=== PATIENT | female | born 1960 | race Caucasian/White ===

== ENCOUNTER 2017-02-28 01:12 | Inpatient (IN) | payer OTHER ==
[2017-02-28] MEDS ORDERED: NALOXONE HCL INJ/PF 0.4 MG/1 ML SDV IV ONE ×3 (01:15→02:46)
[2017-02-28] MEDS ORDERED: DOPAMINE HCL/DEXTROSE 5%-WATER 800 MG/250 ML RTUINJ IV PRN (01:26)
[2017-02-28] MEDS ORDERED: NORMAL SALINE 1000 ML 1,000 ML IV ONE ×2 (01:26→03:01)
--- NOTE | 2017-02-28 01:32 | ER Document Report ---
ED General - General Stated Complaint: POSSIBLE OVERDOSE Time Seen by Provider: 02/28/17 01:14 Notes: Patient is 56-year-old female presents with complaints of being poorly responsive. Patient was diagnosed with flu and then prescribed hydrocodone cough syrup. says that he left and came back home. He came back home he noticed that she was sleepy appearing. He sat on the toilet she slumped forward. Says she did not get this went to after she took the cough medicine. Paramedics arrived she had just recently filled the cough medicine and 20 mL's is already missing. She is only supposed to take 5 mL's every 12 hours. She is also on multiple other sedating medications including trazodone and clonazepam. She is also on Synthroid. Patient currently is able to talk to me. Paramedics did give her Narcan which did wake her up enough to talk. She still very somnolent but able to talk. She was hypotensive upon arrival today and started dopamine and started some IV fluids. Patient currently says that she did not feel this way until taking the cough medicine. Patient says that she misread the bottle and she thinks she did take more cough medicine than what she was supposed to. She denies any current fevers. She denies any other complaints at this time. She denies a headache. Past Medical History - Social History Smoking Status: Unknown if Ever Smoked Frequency of alcohol use: None Drug Abuse: None Family History: Reviewed & Not Pertinent Review of Systems - Review of Systems Notes: My Normal Review Basic REVIEW OF SYSTEMS: CONSTITUTIONAL : Denies fever, chills, or sweats. Denies recent illness. EENT: Denies eye, ear, throat, or mouth pain or symptoms. Denies nasal or sinus congestion. CARDIOVASCULAR: Denies chest pain. RESPIRATORY: Denies cough, cold, or chest congestion. Denies shortness of breath, difficulty breathing, or wheezing. GASTROINTESTINAL: Denies abdominal pain. Some nausea. MUSCULOSKELETAL: Denies neck or back pain or joint pain or swelling. SKIN: Denies rash or skin lesions.. NEUROLOGICAL: Altered mental status. Denies headache. Denies weakness or paralysis or loss of use of either side. Some slight slurring of speech.. Denies sensory or motor loss. ALL OTHER SYSTEMS REVIEWED AND NEGATIVE. Physical Exam - Vital signs Vitals: Resp Pulse Ox 12 92 02/28/17 01:15 12/24/17 01:15 - Notes Notes: General Appearance: Well nourished, somnolent. Will answer questions but then falls back asleep after talking. cooperative, no acute distress, no obvious discomfort. Vitals: reviewed, See vital signs table. Head: no swelling or tenderness to the head Eyes: PERRL, EOMI, Conjuctiva clear Mouth: No decreasd moisture Neck: Supple, no neck tenderness, No thyromegaly Lungs: No wheezing, No rales, No rhonci, No accessory muscle use, good air exchange bilaterally. Heart: Normal rate, Regular rythm, No murmur, no rub Abdomen: Normal BS, soft, No rigidity, No abdominal tenderness, No guarding, no rebound, Extremities: good pulses in all extremities, no swelling or tenderness in the extremities, no edema. Skin: warm, dry, appropriate color, no rash Neuro: speech clear, oriented x 3, normal affect, responds appropriately to questions. Cranial nerves II through XII are intact with exception of just slightly slurred speech which I think is related to the intoxication from the cough medicine. Movements are symmetric. Patient is globally weak but she has equal strength in both hands and both feet. She has good distal sensation in all 4 extremities. Course - Re-evaluation Re-evalutation: 02/28/17 01:27 Patient's history suggests that this is most likely related to her current cough syrup; however, she still somewhat and is also still hypotensive. I have ordered another dose Narcan. I will order a liter fluids. We will continue the dopamine that the paramedics started until her hypotension resolves. 02/28/17 01:31 Also, in reviewing her medications the patient is also on multiple sedating medications. Her clonazepam actually has a few extra pills missing. She had told the paramedics that occasionally she will take half a tab extra every day and that is why she has less than she supposed to. She is also on multiple antipsychotic medications. Patient's heart rate is normal with the hypertension however she does have amlodipine which she takes which could be keeping her heart rate from giving an appropriate increased response to the hypotension. 02/28/17 02:57 Patient's calcium level is low. I suspect some of this is artificial due to her albumin being low however even with correction of albumin her level is still low. I will give her some IV calcium. She continues to have recurrent hypotension. It seems to get worse whenever her Narcan resolved. I will give her another dose of Narcan and then start her on a Narcan drip. 02/28/17 03:19 Due to the patient required a Narcan drip and continued pressor support I did speak with the hospitalist about admission. CT scan of the head is negative. Chest x-ray shows no pneumonia. My review the chest x-ray if it is there it is very small. Being that she has had recent illness we will cover her with Levaquin. Hospitalist recommends obtaining a venous blood gas and he will evaluate her for admission. I have informed the nursing staff is going to draw the venous blood gas. 02/28/17 06:14 Dictation of this chart was performed using voice recognition software; therefore, there may be some unintended grammatical errors. - Vital Signs Vital signs: Temp Pulse Resp BP Pulse Ox 78 13 108/64 96 02/28/17 05:10 02/28/17 05:10 02/28/17 05:10 02/28/17 05:10 - Laboratory Result Diagrams: 02/28/17 01:30 02/28/17 01:30 Laboratory results interpreted by me: 02/28/17 02/28/17 02/28/17 01:30 01:30 01:30 Hgb 11.6 L Hct 33.3 L Monocytes % 15.6 H Potassium 3.4 L Est GFR (Non-Af Amer) 54 L Calcium 7.0 L* AST 46 H Creatine Kinase 23 L Total Protein 4.8 L Albumin 2.9 L - EKG Interpretation by Me Additional EKG results interpreted by me: 02/28/17 02:15 EKG is reviewed and interpreted by me. EKG shows normal sinus rhythm with a rate of [address] segment elevation or depression. Mild T-wave inversion in lead III. AR interval, QRS duration, QTc intervals are within normal range. No old EKG available for comparison at this time. Critical Care Note - Critical Care Note Total time excluding time spent on procedures (mins): 40 Comments: Critical care time for this patient is approximately 40 minutes due to frequent re-evaluations and management of hypotension with pressors as well as discussion with family and hospitalist for admission. Discharge - Discharge Clinical Impression: Opiate overdose Qualifiers: Encounter type: initial encounter Injury intent: accidental or unintentional Qualified Code(s): T40.601A - Poisoning by unspecified narcotics, accidental ( unintentional), initial encounter Hypotension Qualifiers: Hypotension type: unspecified hypotension type Qualified Code(s): I95.9 - Hypotension, unspecified Condition: Stable Disposition: ADMITTED INPATIENT Admitting Provider: Hospitalist Unit Admitted: ICU
[2017-02-28] MEDS ORDERED: ONDANSETRON HCL INJ/PF 4 MG/2 ML SDV IV ONE (01:34)
[2017-02-28] MEDS ORDERED: ONDANSETRON HCL INJ/PF 4 MG/2 ML SDV ONE (01:36)
[2017-02-28] MEDS ORDERED: NALOXONE HCL INJ/PF 0.4 MG/1 ML SDV ONE (01:36)
[2017-02-28 01:53] LABS: ABSOLUTE LYMPHOCYTES (AUTO) 1.2 10^3/uL (0.5-4.7); ABSOLUTE NEUT (AUTO) 4.1 10^3/uL (1.7-8.2); BASOPHILS % (AUTO) 0.4 % (0-2); EOSINOPHILS % (AUTO) 0.3 % (0-6); HEMATOCRIT 33.3 % (36.0-47.0); HEMOGLOBIN 11.6 g/dL (12.0-15.5); LYMPHOCYTES % (AUTO) 19.1 % (13-45); MEAN CORPUSCULAR HEMOGLOBIN 29.6 pg (27.0-33.4); MEAN CORPUSCULAR HGB CONC 34.8 g/dL (32.0-36.0); MEAN CORPUSCULAR VOLUME 85 fl (80-97); MONOCYTES % (AUTO) 15.6 % (3-13); PLATELET COUNT 169 10^3/uL (150-450); RED BLOOD COUNT 3.91 10^6/uL (3.72-5.28); SEGMENTED NEUTROPHILS % (AUTO) 64.6 % (42-78); TOTAL CELLS COUNTED % (AUTO) 100 %; WHITE BLOOD COUNT 6.4 10^3/uL (4.0-10.5)
--- NOTE | 2017-02-28 02:20 | RADIOLOGY REPORT (SQ) ---
EXAM DESCRIPTION: CHEST SINGLE VIEW CLINICAL HISTORY: 56 years, Female, dyspnea COMPARISON: None. LIMITATIONS: None. FINDINGS: Small streakiness of the left lung base. Minimal atelectasis or minor fissure fluid of the right mid lung. Normal cardiac silhouette. Intact bony thorax. IMPRESSION: Small left basilar pneumonia or atelectasis. 2011 [employer]- All Rights Reserved
[2017-02-28 02:21] LABS: ALANINE AMINOTRANSFERASE 31 U/L (9-52); ALBUMIN 2.9 g/dL (3.5-5.0); ALKALINE PHOSPHATASE 45 U/L (38-126); ANION GAP 9 (5-19); ASPARTATE AMINO TRANSFERASE 46 U/L (14-36); BILIRUBIN,DIRECT 0.3 mg/dL (0.0-0.4); BILIRUBIN,TOTAL 0.6 mg/dL (0.2-1.3); BLOOD UREA NITROGEN 14 mg/dL (7-20); CARBON DIOXIDE 23 mmol/L (22-30); CHLORIDE 107 mmol/L (98-107); GLUCOSE 83 mg/dL (75-110); POTASSIUM 3.4 mmol/L (3.6-5.0); SODIUM 138.8 mmol/L (137-145); TOTAL PROTEIN 4.8 g/dL (6.3-8.2)
[2017-02-28] MEDS ORDERED: NORMAL SALINE 500 ML with NALOXONE HCL 2 MG IV PRN ×2 (02:46)
--- NOTE | 2017-02-28 02:46 | RADIOLOGY REPORT (SQ) ---
EXAM DESCRIPTION: CT HEAD WITHOUT CLINICAL HISTORY: 56 years Female, altered mental status COMPARISON: None. TECHNIQUE: No contrast. This exam was performed according to our departmental dose-optimization program, which includes automated exposure control, adjustment of the mA and/or kV according to patient size and/or use of iterative reconstruction technique. FINDINGS: Brain parenchyma appears intact. No hemorrhage or infarct. No mass, mass effect, or midline shift. 1.9 cm right inferior maxillary retention cyst-mucocele. Extra-axial structures are otherwise grossly unremarkable. IMPRESSION: No acute findings.
[2017-02-28] MEDS ORDERED: NALOXONE HCL INJ 2 MG/2 ML DISP.SYRIN ONE (02:56)
[2017-02-28] MEDS ORDERED: CALCIUM GLUCONATE 1000 MG/10 ML INJ IV ONE (02:57)
[2017-02-28] MEDS ORDERED: LEVOFLOXACIN 750 MG/D5W RTU 750 MG/150 ML RTUPB IV ONE (03:01)
[2017-02-28 03:35] LABS: VENOUS BLOOD BASE EXCESS 0.2 mmol/L; VENOUS BLOOD HCO3 27.4 mmol/L (20-32); VENOUS BLOOD PCO2 55.1 mmHg (35-63); VENOUS BLOOD PH 7.31 (7.30-7.42)
[2017-02-28] MEDS ORDERED: IPRATROPIUM/ALBUTEROL 0.5-2.5 MG/3 ML AMPUL NEB PRN (03:36)
[2017-02-28] MEDS ORDERED: NORMAL SALINE 1000 ML 1,000 ML IV SCH (03:45)
[2017-02-28 03:56] LABS: FREE T4 (FREE THYROXINE) 1.16 ng/dL (0.78-2.19)
[2017-02-28 04:10] LABS: THYROID STIMULATING HORMONE 4.41 uIU/mL (0.47-4.68)
[2017-02-28 04:31] LABS: URINE BARBITURATES SCREEN NEGATIVE; URINE BENZODIAZEPINES SCREEN NEGATIVE; URINE COCAINE SCREEN NEGATIVE; URINE MARIJUANA (THC) SCREEN NEGATIVE; URINE METHADONE SCREEN NEGATIVE; URINE PHENCYCLIDINE SCREEN NEGATIVE
[2017-02-28 04:31] LABS: CREATINE KINASE MB < 0.22 ng/mL (<4.55); TROPONIN I < 0.012 ng/mL
[2017-02-28 04:32] LABS: APPEARANCE,URINE CLEAR; BILIRUBIN,URINE NEGATIVE (NEGATIVE); COLOR,URINE YELLOW; GLUCOSE, URINE NEGATIVE (NEGATIVE); KETONES,URINE TRACE mg/dL (NEGATIVE); LEUKOCYTE ESTERASE,URINE NEGATIVE (NEGATIVE); NITRITE,URINE NEGATIVE (NEGATIVE); PROTEIN,URINE NEGATIVE (NEGATIVE); URINE SPECIFIC GRAVITY 1.005; UROBILINOGEN,URINE NEGATIVE mg/dL (<2.0)
[2017-02-28 04:58] LABS: URINE AMPHETAMINES SCREEN NEGATIVE
[2017-02-28 06:11] LABS: ALANINE AMINOTRANSFERASE 40 U/L (9-52); ALBUMIN 3.5 g/dL (3.5-5.0); ALKALINE PHOSPHATASE 69 U/L (38-126); ANION GAP 10 (5-19); ASPARTATE AMINO TRANSFERASE 55 U/L (14-36); BILIRUBIN,DIRECT 0.2 mg/dL (0.0-0.4); BILIRUBIN,TOTAL 0.4 mg/dL (0.2-1.3); BLOOD UREA NITROGEN 15 mg/dL (7-20); CALCIUM 8.2 mg/dL (8.4-10.2); CARBON DIOXIDE 26 mmol/L (22-30); CHLORIDE 104 mmol/L (98-107); GLUCOSE 119 mg/dL (75-110); POTASSIUM 3.7 mmol/L (3.6-5.0); SODIUM 139.6 mmol/L (137-145); TOTAL PROTEIN 5.8 g/dL (6.3-8.2)
[2017-02-28 07:23] LABS: HEMATOCRIT 35.5 % (36.0-47.0); HEMOGLOBIN 12.2 g/dL (12.0-15.5); MEAN CORPUSCULAR HEMOGLOBIN 29.5 pg (27.0-33.4); MEAN CORPUSCULAR HGB CONC 34.5 g/dL (32.0-36.0); MEAN CORPUSCULAR VOLUME 86 fl (80-97); PLATELET COUNT 135 10^3/uL (150-450); RED BLOOD COUNT 4.14 10^6/uL (3.72-5.28); WHITE BLOOD COUNT 6.5 10^3/uL (4.0-10.5)
--- NOTE | 2017-02-28 07:23 | PDOC H&P ---
History of Present Illness Admission Date/PCP: 02/28/17 03:28 Patient complains of: Altered mental status History of Present Illness: BERTHA PORRAS is a 56 year old female with a history of hypertension, obesity, bipolar depression and hypothyroidism. She presents with altered mental status 12 hours after diagnosis of bronchitis versus influenza with cough and prescribed hydrocodone cough syrup. She is unable to provide history but accompanied by her who states she also takes trazodone 300, Klonopin 2 mg, Seroquel 300 nightly. In the emergency room she has been lethargic with hypotension requiring an IV fluid challenge, IV Narcan and dopamine. Her workup including venous blood gas is unremarkable and she is referred to the hospitalist for admission. Past Medical History Cardiac Medical History: Reports: Hypertension Endocrine Medical History: Reports: Hypothyroidism, Obesity Psychiatric Medical History: Reports: Depression Social History Information Source: Relative, Emergency Med Personnel Lives with: Spouse/Significant other Smoking Status: Unknown if Ever Smoked Frequency of Alcohol Use: None Hx Recreational Drug Use: No Drugs: None Hx Prescription Drug Abuse: No - Advance Directive Resuscitation Status: Full Code Family History Family History: Hypertension Parental Family History Reviewed: Yes Children Family History Reviewed: Yes Sibling(s) Family History Reviewed.: Yes Medication/Allergy Home Medications: Amlodipine Besylate 5 mg PO DAILY 02/28/17 Atorvastatin Calcium 20 mg PO DAILY 02/28/17 Bupropion HCl [Bupropion Xl] 300 mg PO DAILY 02/28/17 Clonazepam 2 mg PO DAILY 02/28/17 Escitalopram Oxalate 20 mg PO DAILY 02/28/17 Gabapentin 300 mg PO BID 02/28/17 Hydrocodone/Chlorphen P-Stirex [Hydrocodone-Chlorpheniram Susp] 5 ml PO Q12H Levothyroxine Sodium [Synthroid 0.075 mg Tablet] 0.075 mg PO DAILY 02/28/17 Losartan Potassium 100 mg PO DAILY 02/28/17 Ondansetron HCl 8 mg PO DAILY PRN 02/28/17 Pantoprazole Sodium 40 mg PO DAILY 02/28/17 Quetiapine Fumarate 300 mg PO QHS 02/28/17 Trazodone HCl 300 mg PO QHS 02/28/17 Allergies/Adverse Reactions: Sulfa (Sulfonamide Antibiotics) Allergy (Verified 02/28/17 06:33) Review of Systems Constitutional: ABSENT: chills, fever(s), headache(s), weight gain, weight loss Eyes: ABSENT: visual disturbances Ears: ABSENT: hearing changes Cardiovascular: ABSENT: chest pain, dyspnea on exertion, edema, orthropnea, palpitations Respiratory: ABSENT: cough, hemoptysis Gastrointestinal: ABSENT: abdominal pain, constipation, diarrhea, hematemesis, hematochezia, nausea, vomiting Genitourinary: ABSENT: dysuria, hematuria Musculoskeletal: ABSENT: joint swelling Integumentary: ABSENT: rash, wounds Neurological: ABSENT: abnormal gait, abnormal speech, confusion, dizziness, focal weakness, syncope Psychiatric: ABSENT: anxiety, depression, homidical ideation, suicidal ideation Endocrine: ABSENT: cold intolerance, heat intolerance, polydipsia, polyuria Hematologic/Lymphatic: ABSENT: easy bleeding, easy bruising Physical Exam Vital Signs: Temp Pulse Resp BP Pulse Ox 78 15 117/67 96 02/28/17 05:10 02/28/17 06:13 02/28/17 06:13 02/28/17 06:13 Intake & Output 02/26/17 02/27/17 02/28/17 11:59 11:59 11:59 Output Total 1400 Balance -1400 Weight 96.7 kg General appearance: PRESENT: no acute distress, obese, other - Sedated Head exam: PRESENT: atraumatic, normocephalic Eye exam: PRESENT: conjunctiva pink, EOMI, PERRLA. ABSENT: scleral icterus Ear exam: PRESENT: normal external ear exam Mouth exam: PRESENT: moist, tongue midline Neck exam: ABSENT: carotid bruit, JVD, lymphadenopathy, thyromegaly Respiratory exam: PRESENT: clear to auscultation josep. ABSENT: rales, rhonchi, wheezes Cardiovascular exam: PRESENT: RRR. ABSENT: diastolic murmur, rubs, systolic murmur Pulses: PRESENT: normal dorsalis pedis pul Vascular exam: PRESENT: normal capillary refill GI/Abdominal exam: PRESENT: normal bowel sounds, soft. ABSENT: distended, guarding, mass, organolmegaly, rebound, tenderness Rectal exam: PRESENT: deferred Extremities exam: PRESENT: full ROM. ABSENT: calf tenderness, clubbing, pedal edema Neurological exam: PRESENT: altered, CN II-XII grossly intact. ABSENT: motor sensory deficit Psychiatric exam: PRESENT: unusual affect Skin exam: PRESENT: dry, intact, warm. ABSENT: cyanosis, rash Results Laboratory Results: 02/28/17 05:35 02/28/17 02/28/17 03:30 05:35 Sodium 139.6 Potassium 3.7 Chloride 104 Carbon Dioxide 26 Anion Gap 10 BUN 15 Creatinine 0.99 Est GFR ( Amer) > 60 Est GFR (Non-Af Amer) 58 L Glucose 119 H Calcium 8.2 L Total Bilirubin 0.4 AST 55 H ALT 40 Alkaline Phosphatase 69 Total Protein 5.8 L Albumin 3.5 Urine Color YELLOW Urine Appearance CLEAR Urine pH 6.0 Ur Specific [place] 1.005 Urine Protein NEGATIVE Urine Glucose (UA) NEGATIVE Urine Ketones TRACE H Urine Blood NEGATIVE Urine Nitrite NEGATIVE Ur Leukocyte Esterase NEGATIVE Urine WBC (Auto) 0 Urine RBC (Auto) 0 Impressions: Chest X-Ray 02/28/17 01:15 IMPRESSION: Small left basilar pneumonia or atelectasis. 2010 [employer]- All Rights Reserved Head CT 02/28/17 01:32 IMPRESSION: No acute findings. Assessment & Plan - Diagnosis (1) Opiate overdose Qualifiers: Encounter type: initial encounter Injury intent: accidental or unintentional Qualified Code(s): T40.601A - Poisoning by unspecified narcotics , accidental (unintentional), initial encounter Is this a current diagnosis for this admission?: Yes Plan: ICU admission, continue supportive measures with IV fluid challenge, IV Narcan and dopamine. (2) Depression Is this a current diagnosis for this admission?: Yes Plan: Unable to identify intention, consider mental health consult (3) Hypothyroid Is this a current diagnosis for this admission?: Yes Plan: Differential diagnosis of myxedema, TSH pending (4) Hypotension Qualifiers: Hypotension type: unspecified hypotension type Qualified Code(s): I95.9 - Hypotension, unspecified Is this a current diagnosis for this admission?: Yes Plan: IV fluid challenge, IV dopamine. - Time Time Spent: 50 to 70 Minutes - Inpatient Certification Medical Necessity: Need Close Monitoring Due to Risk of Patient Decompensation
[2017-02-28 07:30] LABS: ABSOLUTE LYMPHOCYTES# (MANUAL) 1.3 10^3/uL (0.5-4.7); ABSOLUTE MONOCYTES # (MANUAL) 1.1 10^3/uL (0.1-1.4); ABSOLUTE NEUTROPHILS# (MANUAL) 4.1 10^3/uL (1.7-8.2); BAND NEUTROPHILS % (MANUAL) 3 % (3-5); BASOPHILS % (MANUAL) 0 % (0-2); EOSINOPHILS % (MANUAL) 0 % (0-6); LYMPHOCYTES % (MANUAL) 20 % (13-45); MONOCYTES % (MANUAL) 17 % (3-13); SEGMENTED NEUTROPHILS % (MAN) 60 % (42-78); TOTAL CELLS COUNTED 100
[2017-02-28] MEDS: HEPARIN SOD (PORCINE) 5,000 UNIT/ML 1 ML SYRINGE SUBCUT SCH ×3 (07:30→22:15)
[2017-02-28 07:31] LABS: PLATELET COMMENT ADEQUATE; RBC MORPHOLOGY COMMENT NORMO-CYTIC/CHROMIC
--- NOTE | 2017-02-28 08:45 | EKG REPORT ---
SEVERITY:- BORDERLINE ECG - SINUS RHYTHM BORDERLINE T WAVE ABNORMALITIES : Confirmed by: Kain Pierson MD 28-Feb-2017 08:44:01
[2017-02-28] MEDS: IPRATROPIUM/ALBUTEROL 0.5-2.5 MG/3 ML AMPUL NEB SCH ×2 (08:47→14:33)
[2017-02-28] MEDS: OSELTAMIVIR PHOSPHATE 75 MG CAPSULE PO SCH ×2 (10:13→18:40)
[2017-02-28] MEDS: DOCUSATE SODIUM 100 MG CAPSULE PO SCH ×2 (10:14→18:39)
[2017-02-28] MEDS: ACETAMINOPHEN 325 MG TABLET PO PRN ×2 (10:45→18:38)
[2017-02-28 11:10] LABS: CREATINE KINASE MB < 0.22 ng/mL (<4.55); TROPONIN I < 0.012 ng/mL
[2017-02-28 16:33] LABS: CREATINE KINASE MB < 0.22 ng/mL (<4.55); TROPONIN I < 0.012 ng/mL
--- NOTE | 2017-02-28 17:21 | PDOC PROGRESS REPORT ---
Subjective Progress Note for:: 02/28/17 Subjective:: 56-year-old female with past medical history of Hypertension Obesity Bipolar disorder Hypothyroidism She was recently diagnosed with bronchitis and prescribed hydrocodone cough syrup. The patient presented to the emergency room with lethargy and hypotension, most likely due to a combination of her prescribed medications. She was treated with IV fluids IV Narcan and eventually started on a dopamine drip and admitted to the intensive care unit. This morning when I saw her she was off the Narcan drip. IV fluids have been stopped. Her systolic blood pressure has been running in the low 100s. The patient reported that she was diagnosed with influenza as an outpatient but does not recall being started on Tamiflu. Reason For Visit: ACCIDENTAL OPIATE OVERDOSE, ENCEPHALOPATHY, Physical Exam Vital Signs: Temp Pulse Resp BP Pulse Ox 78 15 117/67 96 02/28/17 05:10 02/28/17 06:13 02/28/17 06:13 02/28/17 06:13 Intake & Output 02/27/17 02/28/17 03/01/17 06:59 06:59 06:59 Output Total 1400 Balance -1400 Weight 96.7 kg General appearance: PRESENT: no acute distress Head exam: PRESENT: atraumatic, normocephalic Eye exam: PRESENT: conjunctiva pink, EOMI Ear exam: PRESENT: normal external ear exam Throat exam: ABSENT: tonsillar exudate Neck exam: ABSENT: carotid bruit, JVD, tenderness, tracheal deviation Respiratory exam: PRESENT: rhonchi. ABSENT: accessory muscle use Cardiovascular exam: PRESENT: RRR GI/Abdominal exam: PRESENT: normal bowel sounds, soft. ABSENT: tenderness Rectal exam: PRESENT: deferred Neurological exam: PRESENT: alert, awake, oriented to person, oriented to place , oriented to time Psychiatric exam: PRESENT: appropriate affect Results Laboratory Results: 02/28/17 05:35 02/28/17 05:35 02/28/17 02/28/17 02/28/17 03:30 05:35 05:35 WBC 6.5 RBC 4.14 Hgb 12.2 Hct 35.5 L MCV 86 MCH 29.5 MCHC 34.5 RDW 13.0 Plt Count 135 L Seg Neutrophils % Not Reportable Lymphocytes % Not Reportable Monocytes % Not Reportable Eosinophils % Not Reportable Basophils % Not Reportable Absolute Neutrophils Not Reportable Absolute Lymphocytes Not Reportable Absolute Monocytes Not Reportable Absolute Eosinophils Not Reportable Absolute Basophils Not Reportable Sodium 139.6 Potassium 3.7 Chloride 104 Carbon Dioxide 26 Anion Gap 10 BUN 15 Creatinine 0.99 Est GFR ( Amer) > 60 Est GFR (Non-Af Amer) 58 L Glucose 119 H Calcium 8.2 L Total Bilirubin 0.4 AST 55 H ALT 40 Alkaline Phosphatase 69 Total Protein 5.8 L Albumin 3.5 Urine Color YELLOW Urine Appearance CLEAR Urine pH 6.0 Ur Specific [place] 1.005 Urine Protein NEGATIVE Urine Glucose (UA) NEGATIVE Urine Ketones TRACE H Urine Blood NEGATIVE Urine Nitrite NEGATIVE Ur Leukocyte Esterase NEGATIVE Urine WBC (Auto) 0 Urine RBC (Auto) 0 Impressions: Chest X-Ray 02/28/17 01:15 IMPRESSION: Small left basilar pneumonia or atelectasis. 2010 [employer]- All Rights Reserved Head CT 02/28/17 01:32 IMPRESSION: No acute findings. Assessment & Plan - Diagnosis (1) Hypotension Qualifiers: Hypotension type: unspecified hypotension type Qualified Code(s): I95.9 - Hypotension, unspecified Is this a current diagnosis for this admission?: Yes Plan: Due to a combination of medications and inadvertent overuse of hydrocodone. Continue to monitor closely. IV fluid bolus as needed. (2) Opiate overdose Qualifiers: Encounter type: initial encounter Injury intent: accidental or unintentional Qualified Code(s): T40.601A - Poisoning by unspecified narcotics , accidental (unintentional), initial encounter Is this a current diagnosis for this admission?: Yes (3) Bipolar disorder Is this a current diagnosis for this admission?: Yes (4) Hypothyroid Is this a current diagnosis for this admission?: Yes Plan: Continue Synthroid. - Time Time Spent with patient: 35 or more minutes
[2017-02-28] MEDS ORDERED: QUETIAPINE FUMARATE 100 MG TABLET PO SCH (22:00)
[2017-02-28] MEDS ORDERED: TRAZODONE HCL 50 MG TABLET PO SCH (22:00)
[2017-02-28] MEDS ORDERED: ATORVASTATIN CALCIUM 20 MG TABLET PO SCH (22:00)
[2017-03-01 04:26] LABS: ABSOLUTE MONOCYTES (AUTO) 0.6 10^3/uL (0.1-1.4); ABSOLUTE NEUT (AUTO) 1.3 10^3/uL (1.7-8.2); BASOPHILS % (AUTO) 0.5 % (0-2); EOSINOPHILS % (AUTO) 0.7 % (0-6); HEMATOCRIT 32.4 % (36.0-47.0); HEMOGLOBIN 11.5 g/dL (12.0-15.5); LYMPHOCYTES % (AUTO) 50.2 % (13-45); MEAN CORPUSCULAR HEMOGLOBIN 29.9 pg (27.0-33.4); MEAN CORPUSCULAR HGB CONC 35.5 g/dL (32.0-36.0); MEAN CORPUSCULAR VOLUME 84 fl (80-97); MONOCYTES % (AUTO) 15.4 % (3-13); PLATELET COUNT 148 10^3/uL (150-450); RED BLOOD COUNT 3.84 10^6/uL (3.72-5.28); RED CELL DISTRIBUTION WIDTH 13.3 % (11.5-14.0); SEGMENTED NEUTROPHILS % (AUTO) 33.2 % (42-78); TOTAL CELLS COUNTED % (AUTO) 100 %; WHITE BLOOD COUNT 3.9 10^3/uL (4.0-10.5)
[2017-03-01 04:43] LABS: ALANINE AMINOTRANSFERASE 36 U/L (9-52); ALBUMIN 3.3 g/dL (3.5-5.0); ALKALINE PHOSPHATASE 54 U/L (38-126); ANION GAP 6 (5-19); ASPARTATE AMINO TRANSFERASE 31 U/L (14-36); BILIRUBIN,DIRECT 0.2 mg/dL (0.0-0.4); BILIRUBIN,TOTAL 0.3 mg/dL (0.2-1.3); BLOOD UREA NITROGEN 7 mg/dL (7-20); CALCIUM 8.5 mg/dL (8.4-10.2); CARBON DIOXIDE 30 mmol/L (22-30); CHLORIDE 109 mmol/L (98-107); GLUCOSE 89 mg/dL (75-110); SODIUM 144.7 mmol/L (137-145); TOTAL PROTEIN 5.5 g/dL (6.3-8.2)
[2017-03-01] MEDS: HEPARIN SOD (PORCINE) 5,000 UNIT/ML 1 ML SYRINGE SUBCUT SCH (06:27)
[2017-03-01] MEDS: ACETAMINOPHEN 325 MG TABLET PO PRN (09:08)
[2017-03-01] MEDS: OSELTAMIVIR PHOSPHATE 75 MG CAPSULE PO SCH (09:09)
[2017-03-01] MEDS: DOCUSATE SODIUM 100 MG CAPSULE PO SCH (09:10)
[2017-03-01 09:24] VITALS: BP 133/84
[2017-03-01] MEDS ORDERED: LEVOTHYROXINE SODIUM 0.075 MG TABLET PO SCH (10:00)
[2017-03-01] MEDS ORDERED: CLONAZEPAM 1 MG TABLET PO SCH (10:00)
--- NOTE | 2017-03-01 13:52 | PDOC DISCHARGE SUMMARY ---
General - Admit/Disc Date/PCP Admission Date/Primary Care Provider: 02/28/17 03:28 PCP: Dr. Jackson Discharge Date: 03/01/17 - Discharge Diagnosis (1) Hypotension Is this a current diagnosis for this admission?: Yes (2) Opiate overdose Is this a current diagnosis for this admission?: Yes (3) Bipolar disorder Is this a current diagnosis for this admission?: Yes (4) Hypothyroid Is this a current diagnosis for this admission?: Yes (5) Influenza Is this a current diagnosis for this admission?: Yes - Additional Information Resuscitation Status: Full Code Discharge Diet: As Tolerated Discharge Activity: Activity As Tolerated Prescriptions: Oseltamivir Phosphate [Tamiflu 75 mg Capsule] 75 mg PO BID #8 capsule Home Medications: Atorvastatin Calcium 20 mg PO QHS 02/28/17 Bupropion HCl [Bupropion Xl] 300 mg PO DAILY 02/28/17 Clonazepam 2 mg PO DAILY 02/28/17 Escitalopram Oxalate 20 mg PO DAILY 02/28/17 Gabapentin 300 mg PO BID 02/28/17 Levothyroxine Sodium [Synthroid 0.075 mg Tablet] 0.075 mg PO DAILY 02/28/17 Losartan Potassium 100 mg PO DAILY 02/28/17 Ondansetron HCl 8 mg PO DAILY PRN 02/28/17 Pantoprazole Sodium 40 mg PO DAILY 02/28/17 Quetiapine Fumarate 600 mg PO QHS 02/28/17 Trazodone HCl 300 mg PO QHS 02/28/17 Oseltamivir Phosphate [Tamiflu 75 mg Capsule] 75 mg PO BID #8 capsule 03/01/17 History of Present Illness History of Present Illness: BERTHA PORRAS is a 56 year old female With a past medical history of Hypertension Obesity Bipolar disorder Hypothyroidism No She was recently diagnosed with bronchitis and prescribed hydrocodone cough syrup. The patient presented to the emergency room with lethargy and hypotension, most likely due to a combination of her prescribed medications. She was treated with IV fluids IV Narcan and eventually started on a dopamine drip and admitted to the intensive care unit. Her systolic blood pressure was running in the low 100s. The patient reported that she was diagnosed with influenza as an outpatient but does not recall being started on Tamiflu. Hospital Course Hospital Course: She was started on Tamiflu. Outpatient medications were held. She did well overnight. Blood pressures have improved. Amlodipine will be stopped. She needs to continue to complete a course of Tamiflu and follow up with her primary care physician as an outpatient. Her symptoms are much improved. Physical Exam Vital Signs: Temp Pulse Resp BP Pulse Ox 99.1 F 71 20 131/78 H 91 L 03/01/17 08:21 03/01/17 08:21 03/01/17 08:21 03/01/17 08:21 02/28/17 21:00 Intake & Output 02/28/17 03/01/17 03/02/17 06:59 06:59 06:59 Intake Total 3978 Output Total 1400 4600 1100 Balance -1400 -622 -1100 Weight 96.7 kg General appearance: PRESENT: no acute distress Mouth exam: PRESENT: moist Respiratory exam: PRESENT: clear to auscultation josep, unlabored. ABSENT: accessory muscle use Cardiovascular exam: PRESENT: RRR GI/Abdominal exam: PRESENT: normal bowel sounds, soft. ABSENT: tenderness Results Laboratory Results: 03/01/17 04:16 03/01/17 04:16 03/01/17 03/01/17 04:16 04:16 WBC 3.9 L RBC 3.84 Hgb 11.5 L Hct 32.4 L MCV 84 MCH 29.9 MCHC 35.5 RDW 13.3 Plt Count 148 L Seg Neutrophils % 33.2 L Lymphocytes % 50.2 H Monocytes % 15.4 H Eosinophils % 0.7 Basophils % 0.5 Absolute Neutrophils 1.3 L Absolute Lymphocytes 2.0 Absolute Monocytes 0.6 Absolute Eosinophils 0.0 Absolute Basophils 0.0 Sodium 144.7 Potassium 4.0 Chloride 109 H Carbon Dioxide 30 Anion Gap 6 BUN 7 Creatinine 0.70 Est GFR ( Amer) > 60 Est GFR (Non-Af Amer) > 60 Glucose 89 Calcium 8.5 Total Bilirubin 0.3 AST 31 ALT 36 Alkaline Phosphatase 54 Total Protein 5.5 L Albumin 3.3 L 02/28/17 02/28/17 02/28/17 10:13 10:13 15:47 Creatine Kinase 21 L 22 L CK-MB (CK-2) < 0.22 Troponin I < 0.012 02/28/17 15:47 Creatine Kinase CK-MB (CK-2) < 0.22 Troponin I < 0.012 Impressions: Chest X-Ray 02/28/17 01:15 IMPRESSION: Small left basilar pneumonia or atelectasis. 2011 [facility] [employer]- All Rights Reserved Head CT 02/28/17 01:32 IMPRESSION: No acute findings. Qualifiers PATEINT BEING DISCHARGED WITH ANY OF THE FOLLOWING DIAGNOSIS?: No Plan Discharge Plan: Follow up with PCP in 1 week. Time Spent: Greater than 30 Minutes
== END 2017-03-01 10:46 | disposition home or self-care (01) | DRG 918 ==
LOC: ER 01:12 → EH 03:28 → ICU 04:14
PROVIDERS: ADMIT Internal Medicine; ATTEND Internal Medicine
DX: T40.601A Poisoning by unspecified narcotics, accidental (unintentional), initial encounter (principal); J11.1 Influenza due to unidentified influenza virus with other respiratory manifestations; R41.82 Altered mental status, unspecified; I95.9 Hypotension, unspecified; E03.9 Hypothyroidism, unspecified; I10 Essential (primary) hypertension; F31.9 Bipolar disorder, unspecified; Y92.002 Bathroom of unspecified non-institutional (private) residence as the place of occurrence of the external cause; Z79.899 Other long term (current) drug therapy
CPT/HCPCS: 36415; 70450; 71010; 80053; 80307; 81001; 82550; 82553; 82803; 83735; 84439; 84443; 84484; 85025; 87040; 93005; 93010; 94640; 96365; 96366; 96368; 96375; 96376; 99291; J0610; J1265; J1644; J1956; J2310; J2405; J3490; J7030; J7040; J7620

== ENCOUNTER 2017-07-05 14:31 | Emergency (ER) | payer OTHER ==
[2017-07-05] MEDS ORDERED: ASPIRIN 325 MG TABLET PO ONE (15:57)
--- NOTE | 2017-07-05 15:58 | ER Document Report ---
ED Medical Screen (RME) - General Chief Complaint: Chest Pain Stated Complaint: CHEST PAIN, ARM PAIN Time Seen by Provider: 07/05/17 15:57 Notes: Patient states that she was at her psychiatrist's office today when he noticed that her blood pressure was high and that she was having some substernal chest pain going to both arms. She was therefore referred to the emergency department for further evaluation. No history of coronary artery disease. TRAVEL OUTSIDE OF THE [place] IN LAST 30 DAYS: No - Related Data Allergies/Adverse Reactions: Sulfa (Sulfonamide Antibiotics) Allergy (Verified 07/05/17 15:12) Past Medical History - Social History Chew tobacco use (# tins/day): No Frequency of alcohol use: None Drug Abuse: None - Past Medical History Cardiac Medical History: Reports: Hx Hypertension Endocrine Medical History: Reports: Hx Hypothyroidism Renal/ Medical History: Denies: Hx Peritoneal Dialysis Psychiatric Medical History: Reports: Hx Depression - Immunizations History of Influenza Vaccine for 12/2016 - 05/2017 Season: Yes Influenza Administration Date for 12/2016 - 05/2017 Season: 12/06/16 Physical Exam - Vital signs Vitals: Temp Pulse Resp BP Pulse Ox 98.4 F 68 16 147/83 H 95 07/05/17 14:56 07/05/17 14:56 07/05/17 14:56 07/05/17 14:56 07/05/17 14:56 Course - Vital Signs Vital signs: Temp Pulse Resp BP Pulse Ox 98.4 F 68 16 147/83 H 95 07/05/17 14:56 07/05/17 14:56 07/05/17 14:56 07/05/17 14:56 07/05/17 14:56 Doctor's Discharge - Discharge Referrals: TE DONOHUE MD [Primary Care Provider] - Follow up as needed
[2017-07-05 16:38] LABS: ABSOLUTE BASOPHILS # (AUTO) 0.1 10^3/uL (0.0-0.2); ABSOLUTE EOSINOPHILS # (AUTO) 0.2 10^3/uL (0.0-0.6); ABSOLUTE MONOCYTES (AUTO) 0.5 10^3/uL (0.1-1.4); ABSOLUTE NEUT (AUTO) 3.6 10^3/uL (1.7-8.2); BASOPHILS % (AUTO) 1.2 % (0-2); EOSINOPHILS % (AUTO) 2.1 % (0-6); HEMATOCRIT 41.3 % (36.0-47.0); HEMOGLOBIN 14.1 g/dL (12.0-15.5); MEAN CORPUSCULAR HEMOGLOBIN 29.5 pg (27.0-33.4); MEAN CORPUSCULAR HGB CONC 34.1 g/dL (32.0-36.0); MEAN CORPUSCULAR VOLUME 87 fl (80-97); MONOCYTES % (AUTO) 6.3 % (3-13); RED BLOOD COUNT 4.77 10^6/uL (3.72-5.28); RED CELL DISTRIBUTION WIDTH 12.8 % (11.5-14.0); SEGMENTED NEUTROPHILS % (AUTO) 49.4 % (42-78); TOTAL CELLS COUNTED % (AUTO) 100 %; WHITE BLOOD COUNT 7.2 10^3/uL (4.0-10.5)
--- NOTE | 2017-07-05 16:44 | RADIOLOGY REPORT (SQ) ---
EXAM DESCRIPTION: CHEST 2 VIEWS COMPLETED DATE/TIME: 07/05/2017 4:32 pm REASON FOR STUDY: cp COMPARISON: None. EXAM PARAMETERS: NUMBER OF VIEWS: two views TECHNIQUE: Digital Frontal and Lateral radiographic views of the chest acquired. RADIATION DOSE: NA LIMITATIONS: none FINDINGS: LUNGS AND PLEURA: Blunting of the posterior costophrenic sulci bilaterally from trace bila teral pleural effusions B and minimal posterior costophrenic sulcus airspace disease atelectasis favo red over pneumonia. No fluffy parahilar infiltrates worrisome for pulmonary edema. No pneumothorax. MEDIASTINUM AND HILAR STRUCTURES: No masses or contour abnormalities. HEART AND VASCULAR STRUCTURES: Heart normal size. No evidence for failure. BONES: No acute findings. HARDWARE: Clips right upper quadrant post cholecystectomy. OTHER: No other significant finding. IMPRESSION: Blunted bilateral posterior costophrenic sulci from trace pleural fluid and airspace dis ease TECHNICAL DOCUMENTATION: JOB ID: [id number] [employer]- All Rights Reserved Reading location - IP/workstation name: [facility]
[2017-07-05 17:03] LABS: ALANINE AMINOTRANSFERASE 30 U/L (9-52); ALBUMIN 4.7 g/dL (3.5-5.0); ALKALINE PHOSPHATASE 69 U/L (38-126); ANION GAP 13 (5-19); ASPARTATE AMINO TRANSFERASE 23 U/L (14-36); BILIRUBIN,DIRECT 0.3 mg/dL (0.0-0.4); BILIRUBIN,TOTAL 0.3 mg/dL (0.2-1.3); BLOOD UREA NITROGEN 9 mg/dL (7-20); CALCIUM 10.2 mg/dL (8.4-10.2); CARBON DIOXIDE 29 mmol/L (22-30); CHLORIDE 102 mmol/L (98-107); GLUCOSE 89 mg/dL (75-110); POTASSIUM 4.8 mmol/L (3.6-5.0); SODIUM 144.1 mmol/L (137-145); TOTAL PROTEIN 7.2 g/dL (6.3-8.2)
[2017-07-05 17:09] LABS: PLATELET COUNT 252 10^3/uL (150-450)
[2017-07-05] MEDS ORDERED: PREDNISONE 20 MG TABLET PO ONE (17:57)
--- NOTE | 2017-07-05 18:14 | ER Document Report ---
ED General - General Chief Complaint: Chest Pain Stated Complaint: CHEST PAIN, ARM PAIN Time Seen by Provider: 07/05/17 15:57 Mode of Arrival: Ambulatory Information source: Patient Notes: 57-year-old female history of hypertension presents with complaints of chest wall pain and bilateral arm pain and numbness. Patient notes to arm pain and numbness occurs when she lifts up her arms, notes when she does not move her arms the pain is not there. Patient denies any fevers or chills denies any shortness of breath difficulty breathing, patient notes that the chest wall pain has worsened since she started her new job and when she moves it hurts however at rest she has no pain. Patient notes pain with palpation as well TRAVEL OUTSIDE OF THE [place] IN LAST 30 DAYS: No - HPI Onset: Other - 2 week duration Onset/Duration: Waxing and waning Quality of pain: Sharp Severity: Mild Pain Level: 1 Associated symptoms: Body/muscle aches Exacerbated by: Movement Relieved by: Denies Similar symptoms previously: No Recently seen / treated by doctor: Yes - Patient sent in by her psychiatrist - Related Data Allergies/Adverse Reactions: Sulfa (Sulfonamide Antibiotics) Allergy (Verified 07/05/17 15:12) Past Medical History - Social History Smoking Status: Never Smoker Cigarette use (# per day): No Chew tobacco use (# tins/day): No Smoking Education Provided: No Frequency of alcohol use: None Drug Abuse: None Family History: Hypertension Patient has suicidal ideation: No Patient has homicidal ideation: No - Past Medical History Cardiac Medical History: Reports: Hx Hypercholesterolemia, Hx Hypertension Endocrine Medical History: Reports: Hx Hypothyroidism Renal/ Medical History: Denies: Hx Peritoneal Dialysis Psychiatric Medical History: Reports: Hx Depression Past Surgical History: Reports: Hx Cholecystectomy, Hx Hysterectomy Review of Systems - Review of Systems Notes: REVIEW OF SYSTEMS: CONSTITUTIONAL : Denies fever, chills, or sweats. Denies recent illness. EENT: Denies eye, ear, throat, or mouth pain or symptoms. Denies nasal or sinus congestion or discharge. Denies throat, tongue, or mouth swelling or difficulty swallowing. CARDIOVASCULAR: Admits chest wall pain RESPIRATORY: Denies cough, cold, or chest congestion. Denies shortness of breath, difficulty breathing, or wheezing. GASTROINTESTINAL: Denies abdominal pain or distention. Denies nausea, vomiting , or diarrhea. Denies blood in vomitus, stools, or per rectum. Denies black, tarry stools. Denies constipation. GENITOURINARY: Denies difficulty urinating, painful urination, burning, frequency, blood in urine, or discharge. FEMALE GENITOURINARY: Denies vaginal bleeding, heavy or abnormal periods, irregular periods. Denies vaginal discharge or odor. MUSCULOSKELETAL: Admits to bilateral arm pain SKIN: Denies rash, lesions or sores. HEMATOLOGIC : Denies easy bruising or bleeding. LYMPHATIC: Denies swollen, enlarged glands. NEUROLOGICAL: Denies confusion or altered mental status. Denies passing out or loss of consciousness. Denies dizziness or lightheadedness. Denies headache. Denies weakness or paralysis or loss of use of either side. Denies problems with gait or speech. Denies sensory loss, numbness, or tingling. Denies seizures. PSYCHIATRIC: Denies anxiety or stress. Denies depression, suicidal ideation, or homicidal ideation. ALL OTHER SYSTEMS REVIEWED AND NEGATIVE. PHYSICAL EXAMINATION: GENERAL: Well-appearing, well-nourished and in no acute distress. HEAD: Atraumatic, normocephalic. EYES: Pupils equal round and reactive to light, extraocular movements intact, conjunctiva are normal. ENT: Nares patent, oropharynx clear without exudates. Moist mucous membranes. NECK: Normal range of motion, supple without lymphadenopathy LUNGS: Breath sounds clear to auscultation bilaterally and equal. No wheezes rales or rhonchi. HEART: Regular rate and rhythm without murmurs ABDOMEN: Soft, nontender, nondistended abdomen. No guarding, no rebound. No masses appreciated. Female : deferred Musculoskeletal: Chest wall tenderness upon palpation reproducing same exact pain and started NEUROLOGICAL: Cranial nerves grossly intact. Normal speech, normal gait. Normal sensory, motor exams pain with range of motion of the bilateral upper extremities PSYCH: Normal mood, normal affect. SKIN: Warm, Dry, normal turgor, no rashes or lesions noted. Dictation was performed using [employer] voice recognition software Physical Exam - Vital signs Vitals: Temp Pulse Resp BP Pulse Ox 98.4 F 68 16 147/83 H 95 07/05/17 14:56 07/05/17 14:56 07/05/17 14:56 07/05/17 14:56 07/05/17 14:56 Course - Re-evaluation Re-evalutation: 07/05/17 19:20 Patient's presentation is completely reproducible, she notes this is similar to previous episodes, I do not believe this is cardiac in nature however cardiac workup was performed and was negative, patient will be given close follow-up nonetheless for further evaluation and care. After performing a Medical Screening Examination, I estimate there is LOW risk for RUPTURED ESOPHAGUS, PNEUMOTHORAX, PULMONARY EMBOLISM, ACUTE CORONARY SYNDROME, OR THORACIC AORTIC DISSECTION, thus I consider the discharge disposition reasonable. I have reevaluated this patient multiple times and no significant life threatening changes are noted. The patient and I have discussed the diagnosis and risks, and we agree with discharging home with close follow-up. We also discussed returning to the Emergency Department immediately if new or worsening symptoms occur. We have discussed the symptoms which are most concerning (e.g., bloody sputum, worsening pain or shortness of breath) that necessitate immediate return. - Vital Signs Vital signs: Temp Pulse Resp BP Pulse Ox 98.4 F 68 18 139/91 H 95 07/05/17 14:56 07/05/17 14:56 07/05/17 18:01 07/05/17 18:01 07/05/17 18:01 - Laboratory Result Diagrams: 07/05/17 16:18 07/05/17 16:18 - Diagnostic Test Radiology reviewed: Image reviewed - 2 view chest x-ray notes no acute abnormality, Reports reviewed - EKG Interpretation by Me EKG shows normal: Sinus rhythm, Alexis, Intervals, QRS Complexes Discharge - Discharge Clinical Impression: Chest wall pain Condition: Stable Disposition: HOME, SELF-CARE Instructions: Chest Wall Pain ([facility]) Prescriptions: Prednisone [Deltasone 20 mg Tablet] 3 tab PO DAILY 4 Days tablet Referrals: TE DONOHUE MD [Primary Care Provider] - Follow up tomorrow
[2017-07-05 18:22] VITALS: BP 139/91
--- NOTE | 2017-07-05 22:29 | EKG REPORT ---
SEVERITY:- NORMAL ECG - SINUS RHYTHM : Confirmed by: Donna Krishnan 05-Jul-2017 22:28:20
== END 2017-07-05 18:28 | disposition home or self-care (01) ==
LOC: ER 14:31
DX: R07.89 Other chest pain (principal); M79.602 Pain in left arm; M79.601 Pain in right arm; M79.1 Myalgia; E78.00 Pure hypercholesterolemia, unspecified; I10 Essential (primary) hypertension; E03.9 Hypothyroidism, unspecified; Z88.2 Allergy status to sulfonamides; Z90.49 Acquired absence of other specified parts of digestive tract
CPT/HCPCS: 93005; 99285; 36415; 85025; 80053; 84484; 71046; 93010; J7512

== ENCOUNTER → 2017-10-08 | Outpatient (CLI) | payer OTHER ==
--- NOTE | 2017-10-15 11:27 | WOMENS IMAGING REPORT ---
EXAM DESCRIPTION: BILAT SCREENING MAMMO W/CAD COMPLETED DATE/TIME: 10/08/2017 1:00 pm REASON FOR STUDY: BILATERAL SCREENING MAMMO /Z12.31 Z12.31 ENCNTR SCREEN MAMMOGRAM FOR MALIGNANT NE OPLASM OF HER[place]O COMPARISON: 07/08/2015. TECHNIQUE: Standard craniocaudal and mediolateral oblique views of each breast recorded using digita l acquisition. LIMITATIONS: None. FINDINGS: RIGHT BREAST MASSES: No suspicious masses. CALCIFICATIONS: No new or suspicious calcifications. ARCHITECTURAL DISTORTION: None. DEVELOPING DENSITY: Developing density in the upper-outer quadrant, located 8 -9 cm from the nipple. ASYMMETRY: None noted. OTHER: No other significant findings. LEFT BREAST MASSES: No suspicious masses. CALCIFICATIONS: No new or suspicious calcifications. ARCHITECTURAL DISTORTION: None. DEVELOPING DENSITY: None. ASYMMETRY: None noted. OTHER: No other significant findings. Read with the assistance of CAD. .[facility] - R2 Cenova Version 1.3 .[facility] Imaging - R2 Cenova Version 1.3 .[facility] - R2 Cenova Version 2.4 .[facility] - R2 Cenova Version 2.4 .[facility] - R2 Vocational Nurse Version 9.2 IMPRESSION: Developing density in the upper-outer quadrant of the right breast. Stable mammographic appearance of the left breast. BREAST DENSITY: b. There are scattered areas of fibroglandular density. BIRAD: 0 Incomplete: Needs Additional Imaging Evaluation and/or prior Mammograms for Comparison. RECOMMENDATION: RECOMMENDED FOLLOW-UP: Recommend additional evaluation with breast tomosynthesis (pr eferred) or compression views of the right breast and ultrasound of the right breast. Recommend rout ine screening mammography of the left breast. The patient will be contacted for additional imaging. COMMENT: The patient has been notified of the results by letter per SA requirements. Additional no tification policies are in place for contacting patient with suspicious or incomplete findings. Quality ID #[id number]: The [employer] recommends an annual screening mammogram for women aged 40 years or over. This facility utilizes a reminder system to ensure that all patients receive reminder letters, and/or direct phone calls for appointments. This includes reminders for routine scr eening mammograms, diagnostic mammograms, or other Breast Imaging Interventions when appropriate. Th is patient will be placed in the appropriate reminder system. The [employer] (ACR) has developed recommendations for screening MRI of the breast s in certain patient populations, to be used in conjunction with mammography. Breast MRI surveillanc e may be appropriate for women with more than 20% lifetime risk of developing breast cancer as deter mined by genetic testing, significant family history of the disease, or history of mantle radiation f or Hodgkins Disease. ACR Practice Guidelines 2008. TECHNICAL DOCUMENTATION: FINDING NUMBER: (1) ASSESSMENT: (1) JOB ID: [id number] [employer]- All Rights Reserved Reading location - IP/workstation name: [facility]
== END ==
LOC: WI 12:35
PROVIDERS: ATTEND Internal Medicine
DX: Z12.31 Encounter for screening mammogram for malignant neoplasm of breast (principal); R92.2 Inconclusive mammogram
CPT/HCPCS: 77067

== ENCOUNTER → 2017-10-25 | Outpatient (CLI) | payer OTHER ==
--- NOTE | 2017-10-25 16:57 | WOMENS IMAGING REPORT ---
EXAM DESCRIPTION: RIGHT DIAGNOSTIC MAMMO W/CAD; U/S BREAST UNILAT LIMITED COMPLETED DATE/TIME: 10/25/2017 12:50 pm; 10/25/2017 1:27 pm REASON FOR STUDY: RT BREAST DENSITY; RIGHT BREAST; N63.11 N63.11 UNSPECIFIED LUMP IN THE RIGHT [address] ST, UPPER OUTER APOLINAR COMPARISON: 07/08/2015, 10/08/2017 TECHNIQUE: Cone compression craniocaudal and mediolateral oblique images of the breast recorded with digital acquisition. Right breast 90 mediolateral view, MLO view and CC view, right breast ultrasound LIMITATIONS: None. FINDINGS: BREAST: Right MASSES: No suspicious masses. CALCIFICATIONS: No new or suspicious calcifications. ARCHITECTURAL DISTORTION: None. DEVELOPING DENSITY: None. ASYMMETRY: None noted. OTHER: No other significant findings. Read with the assistance of CAD. .[facility] - R2 Cenova Version 1.3 .[facility] Imaging - R2 Cenova Version 1.3 .[facility] - R2 Cenova Version 2.4 .[facility] - R2 Cenova Version 2.4 .[facility] - R2 Management Trainee Program Stores Version 9.2 Right breast ultrasound: Ultrasound of the right upper outer quadrant was performed. No nodules. No acoustic absorption. No worrisome focal findings. IMPRESSION: No mammographic or sonographic evidence for malignancy right breast BREAST DENSITY: c. The breasts are heterogeneously dense, which may obscure small masses. BIRAD: 2 Benign findings. RECOMMENDATION: RECOMMENDED FOLLOW UP: Please continue yearly bilateral screening mammography in Oct. Consider bilateral screening tomosynthesis SPECIFIC INTERVENTION/IMAGING/CONSULTATION RECOMMENDED:No additional intervention/ imaging/consultati on needed at this time. COMMUNICATION:Patient notified by letter COMMENT: The patient has been notified of the results by letter per SA requirements. Additional no tification policies are in place for contacting patient with suspicious or incomplete findings. Quality ID #[id number]: The [employer] recommends an annual screening mammogram for women aged 40 years or over. This facility utilizes a reminder system to ensure that all patients receive reminder letters, and/or direct phone calls for appointments. This includes reminders for routine scr eening mammograms, diagnostic mammograms, or other Breast Imaging Interventions when appropriate. Th is patient will be placed in the appropriate reminder system. The [employer] (ACR) has developed recommendations for screening MRI of the breast s in certain patient populations, to be used in conjunction with mammography. Breast MRI surveillanc e may be appropriate for women with more than 20% lifetime risk of developing breast cancer as deter mined by genetic testing, significant family history of the disease, or history of mantle radiation f or Hodgkins Disease. ACR Practice Guidelines 2008. TECHNICAL DOCUMENTATION: FINDING NUMBER: (1) ASSESSMENT: (1) JOB ID: [id number] [employer]- All Rights Reserved Reading location - IP/workstation name: [facility]
--- NOTE | 2017-10-25 16:57 | WOMENS IMAGING REPORT ---
EXAM DESCRIPTION: RIGHT DIAGNOSTIC MAMMO W/CAD; U/S BREAST UNILAT LIMITED COMPLETED DATE/TIME: 10/25/2017 12:50 pm; 10/25/2017 1:27 pm REASON FOR STUDY: RT BREAST DENSITY; RIGHT BREAST; N63.11 N63.11 UNSPECIFIED LUMP IN THE RIGHT [address], UPPER OUTER APOLINAR COMPARISON: 07/08/2015, 10/08/2017 TECHNIQUE: Cone compression craniocaudal and mediolateral oblique images of the breast recorded with digital acquisition. Right breast 90 mediolateral view, MLO view and CC view, right breast ultrasound LIMITATIONS: None. FINDINGS: BREAST: Right MASSES: No suspicious masses. CALCIFICATIONS: No new or suspicious calcifications. ARCHITECTURAL DISTORTION: None. DEVELOPING DENSITY: None. ASYMMETRY: None noted. OTHER: No other significant findings. Read with the assistance of CAD. .[facility] - R2 Cenova Version 1.3 .[facility] Imaging - R2 Cenova Version 1.3 .[facility] Imaging - R2 Cenova Version 2.4 .[facility] [place] - R2 Cenova Version 2.4 .[facility] - R2 Campus Director Version 9.2 Right breast ultrasound: Ultrasound of the right upper outer quadrant was performed. No nodules. No acoustic absorption. No worrisome focal findings. IMPRESSION: No mammographic or sonographic evidence for malignancy right breast BREAST DENSITY: c. The breasts are heterogeneously dense, which may obscure small masses. BIRAD: 2 Benign findings. RECOMMENDATION: RECOMMENDED FOLLOW UP: Please continue yearly bilateral screening mammography in Oct. Consider bilateral screening tomosynthesis SPECIFIC INTERVENTION/IMAGING/CONSULTATION RECOMMENDED:No additional intervention/ imaging/consultati on needed at this time. COMMUNICATION:Patient notified by letter COMMENT: The patient has been notified of the results by letter per SA requirements. Additional no tification policies are in place for contacting patient with suspicious or incomplete findings. Quality ID #[id number]: The [employer] recommends an annual screening mammogram for women aged 40 years or over. This facility utilizes a reminder system to ensure that all patients receive reminder letters, and/or direct phone calls for appointments. This includes reminders for routine scr eening mammograms, diagnostic mammograms, or other Breast Imaging Interventions when appropriate. Th is patient will be placed in the appropriate reminder system. The [employer] (ACR) has developed recommendations for screening MRI of the breast s in certain patient populations, to be used in conjunction with mammography. Breast MRI surveillanc e may be appropriate for women with more than 20% lifetime risk of developing breast cancer as deter mined by genetic testing, significant family history of the disease, or history of mantle radiation f or Hodgkins Disease. ACR Practice Guidelines 2008. TECHNICAL DOCUMENTATION: FINDING NUMBER: (1) ASSESSMENT: (1) JOB ID: [id number] [employer]- All Rights Reserved Reading location - IP/workstation name: [facility]
== END ==
LOC: WI 12:26
PROVIDERS: ATTEND Internal Medicine
DX: N63.11 Unspecified lump in the right breast, upper outer quadrant (principal)
CPT/HCPCS: 76642

== ENCOUNTER 2018-03-29 11:20 | Day surgery (SDC) | payer OTHER ==
[2018-03-29] MEDS ORDERED: DIPHENHYDRAMINE HCL 50 MG/ML VIAL ONE (11:36)
[2018-03-29] MEDS ORDERED: EPINEPHRINE INJ 1 MG/10 ML DISP.SYRIN ONE (11:36)
[2018-03-29] MEDS ORDERED: FENTANYL CITRATE INJ/PF 100 MCG/2 ML AMPUL ONE (11:36)
[2018-03-29] MEDS ORDERED: FLUMAZENIL INJ 0.5 MG/5 ML VIAL ONE (11:36)
[2018-03-29] MEDS ORDERED: ONDANSETRON HCL INJ/PF 4 MG/2 ML SDV ONE (11:36)
[2018-03-29] MEDS ORDERED: NALOXONE HCL INJ/PF 0.4 MG/1 ML SDV ONE (11:36)
[2018-03-29] MEDS ORDERED: GLUCAGON,HUMAN RECOMB 1 MG INJ ONE (11:37)
[2018-03-29] MEDS: MIDAZOLAM 2 MG/2 ML INJ ONE ×2 (12:01→12:05)
--- NOTE | 2018-03-29 12:18 | Operative Report ---
Operative Report DATE OF SURGERY: 03/29/18 Operative Report: The risks benefits and alternatives of the procedure explained to the patient in detail and informed consent is obtained.A GIF Olympus video scope was inserted into the patient's mouth and hypopharynx ,the esophagus is identified intubated and insufflated, the scope was then advanced through the esophagus stomach and duodenum, retroflexion maneuver is done, the esophagus stomach and first and second portions of the duodenum examined. PREOPERATIVE DIAGNOSIS: Epigastric pain, melena POSTOPERATIVE DIAGNOSIS: Erosive gastritis status post biopsy. Hiatal hernia OPERATION: EGD with biopsy SURGEON: CHEL FORD ANESTHESIA: Moderate Sedation - 4 mg of Versed, 75 mcg of fentanyl. Conscious sedation monitoring time 30 minutes. TISSUE REMOVED OR ALTERED: As noted above. COMPLICATIONS: None. ESTIMATED BLOOD LOSS: None. INTRAOPERATIVE FINDINGS: As noted above. PROCEDURE: Patient tolerated the procedure well. No immediate postprocedure complications are noted. Patient discharged in good condition. Discharge date 03/29/2018. Discharge diet: Regular. Discharge activity: Regular. 2-3-week follow-up to discuss findings. Patient is instructed to call the office or proceed to the emergency room should there be any further problems or questions. I will wait on the pathology.
[2018-03-29 13:22] VITALS: BP 115/71
== END 2018-03-29 13:15 | disposition home or self-care (01) ==
LOC: END 11:20
PROVIDERS: ATTEND Internal Medicine Gastroenterology
DX: K29.50 Unspecified chronic gastritis without bleeding (principal); K44.9 Diaphragmatic hernia without obstruction or gangrene; M19.90 Unspecified osteoarthritis, unspecified site; E78.00 Pure hypercholesterolemia, unspecified; I35.8 Other nonrheumatic aortic valve disorders; G40.909 Epilepsy, unspecified, not intractable, without status epilepticus; I10 Essential (primary) hypertension; Z79.1 Long term (current) use of non-steroidal anti-inflammatories (NSAID); Z79.899 Other long term (current) drug therapy; Z88.2 Allergy status to sulfonamides; K92.1 Melena
CPT/HCPCS: 43239; 88342 ×2; 88305 ×2; J2250; J3010; J0171; J1200; J1610; J2310; J2405; J3490

== ENCOUNTER 2018-07-29 15:03 | Emergency (ER) | payer OTHER ==
--- NOTE | 2018-07-29 15:51 | ER Document Report ---
ED Medical Screen (RME) - General Chief Complaint: Chest Pain Stated Complaint: CHEST PAIN Time Seen by Provider: 07/29/18 15:46 Primary Care Provider: TE DONOHUE MD [Primary Care Provider] - Follow up as needed TRAVEL OUTSIDE OF THE [place] IN LAST 30 DAYS: No - HPI Notes: 07/29/18 15:50 Patient is a 58-year-old female with a history of hypertension and hypothyroidism who presents complaining of left-sided chest pain as well as pain to left side of her neck and towards her shoulder. Pain began a couple days ago. Patient states that movement does make her pain worse. She is otherwise able to eat and drink without difficulty. She is urinating normally. No significant cardiopulmonary medical history otherwise. Denies any prolonged immobilization, distance travel, recent surgery/trauma, personal cancer history, hormone use, smoking, or previous DVT/PE. Denies GOODMAN, fever, neck pain, URI, SOB, Abd pain, or rash. I have treated and performed a rapid initial assessment of this patient. A comprehensive ED assessment and evaluation of the patient, analysis of test results and completion of medical decision making process will be conducted by additional ED providers. PHYSICAL EXAMINATION: GENERAL: Well-appearing, well-nourished and in no acute distress. Chest: + tenderness to palpation of the lt pectoral area and reproducible with arm extension/abduction. LUNGS: Breath sounds clear to auscultation bilaterally and equal. No wheezes rales or rhonchi. HEART: Regular rate and rhythm without murmurs, rubs, gallops. Extremities: No cyanosis, clubbing, or edema b/l. Peripheral pulses 2+. Capillary refill less than 3 seconds. No lower extremity asymmetry. Monico negative bilaterally. NEUROLOGICAL: Normal speech, normal gait. PSYCH: Normal mood, normal affect. SKIN: Warm, Dry, normal turgor, no rashes or lesions noted. - Related Data Allergies/Adverse Reactions: Sulfa (Sulfonamide Antibiotics) Allergy (Verified 03/29/18 11:18) Past Medical History - Past Medical History Cardiac Medical History: Reports: Hx Hypercholesterolemia, Hx Hypertension Denies: Hx Coronary Artery Disease, Hx Heart Attack Pulmonary Medical History: Denies: Hx Asthma, Hx Bronchitis, Hx COPD, Hx Pneumonia Neurological Medical History: Denies: Hx Cerebrovascular Accident, Hx Seizures Endocrine Medical History: Reports: Hx Hypothyroidism Renal/ Medical History: Denies: Hx Peritoneal Dialysis Musculoskeltal Medical History: Reports Hx Arthritis Psychiatric Medical History: Reports: Hx Depression Past Surgical History: Reports: Hx Cholecystectomy. Denies: Hx Hysterectomy - Immunizations Hx Diphtheria, Pertussis, Tetanus Vaccination: Yes History of Influenza Vaccine for 12/2016 - 05/2017 Season: Yes Influenza Administration Date for 12/2016 - 05/2017 Season: 12/06/17 Physical Exam - Vital signs Vitals: Temp Pulse Resp BP Pulse Ox 98.1 F 75 18 124/82 95 07/29/18 15:19 07/29/18 15:19 07/29/18 15:19 07/29/18 15:19 07/29/18 15:19 Course - Vital Signs Vital signs: Temp Pulse Resp BP Pulse Ox 98.1 F 75 18 124/82 95 07/29/18 15:19 07/29/18 15:19 07/29/18 15:19 07/29/18 15:19 07/29/18 15:19 Doctor's Discharge - Discharge Referrals: TE DONOHUE MD [Primary Care Provider] - Follow up as needed
[2018-07-29 16:13] LABS: ABSOLUTE EOSINOPHILS # (AUTO) 0.1 10^3/uL (0.0-0.6); ABSOLUTE LYMPHOCYTES (AUTO) 2.5 10^3/uL (0.5-4.7); ABSOLUTE MONOCYTES (AUTO) 0.5 10^3/uL (0.1-1.4); ABSOLUTE NEUT (AUTO) 3.6 10^3/uL (1.7-8.2); BASOPHILS % (AUTO) 0.7 % (0-2); EOSINOPHILS % (AUTO) 1.9 % (0-6); HEMATOCRIT 38.9 % (36.0-47.0); HEMOGLOBIN 13.6 g/dL (12.0-15.5); LYMPHOCYTES % (AUTO) 37.7 % (13-45); MEAN CORPUSCULAR HEMOGLOBIN 29.6 pg (27.0-33.4); MEAN CORPUSCULAR HGB CONC 34.9 g/dL (32.0-36.0); MEAN CORPUSCULAR VOLUME 85 fl (80-97); MONOCYTES % (AUTO) 6.7 % (3-13); PLATELET COUNT 232 10^3/uL (150-450); RED BLOOD COUNT 4.58 10^6/uL (3.72-5.28); RED CELL DISTRIBUTION WIDTH 12.2 % (11.5-14.0); TOTAL CELLS COUNTED % (AUTO) 100 %; WHITE BLOOD COUNT 6.8 10^3/uL (4.0-10.5)
--- NOTE | 2018-07-29 16:29 | RADIOLOGY REPORT (SQ) ---
EXAM DESCRIPTION: CHEST SINGLE VIEW COMPLETED DATE/TIME: 07/29/2018 4:16 pm REASON FOR STUDY: left CP COMPARISON: 07/05/2017 EXAM PARAMETERS: NUMBER OF VIEWS: One view. TECHNIQUE: Single frontal radiographic view of the chest acquired. RADIATION DOSE: NA LIMITATIONS: None. FINDINGS: LUNGS AND PLEURA: There appear to be minimal pleural effusions on each side. No infiltrat e. No mass. MEDIASTINUM AND HILAR STRUCTURES: No masses. Contour normal. HEART AND VASCULAR STRUCTURES: Heart normal in size. Normal vasculature. BONES: No acute findings. HARDWARE: None in the chest. OTHER: No other significant finding. IMPRESSION: Minimal pleural effusions. TECHNICAL DOCUMENTATION: JOB ID: [id number] [employer]- All Rights Reserved Reading location - IP/workstation name: [email or web address]
[2018-07-29 16:48] LABS: ALANINE AMINOTRANSFERASE 22 U/L (9-52); ALBUMIN 4.1 g/dL (3.5-5.0); ALKALINE PHOSPHATASE 68 U/L (38-126); ANION GAP 10 (5-19); ASPARTATE AMINO TRANSFERASE 22 U/L (14-36); BILIRUBIN,DIRECT 0.3 mg/dL (0.0-0.4); BILIRUBIN,TOTAL 0.4 mg/dL (0.2-1.3); BLOOD UREA NITROGEN 10 mg/dL (7-20); CALCIUM 9.5 mg/dL (8.4-10.2); CARBON DIOXIDE 26 mmol/L (22-30); CHLORIDE 105 mmol/L (98-107); GLUCOSE 83 mg/dL (75-110); POTASSIUM 4.3 mmol/L (3.6-5.0); TOTAL PROTEIN 6.7 g/dL (6.3-8.2)
[2018-07-29] MEDS ORDERED: HYDROMORPHONE HCL INJ/PF 2 MG/ML AMPULE IV STA (20:32)
[2018-07-29] MEDS ORDERED: ONDANSETRON HCL INJ/PF 4 MG/2 ML SDV IV ONE (20:34)
--- NOTE | 2018-07-29 22:04 | ER Document Report ---
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 Use the sling as much as possible to ease the pain in the weight on the shoulder. You can take the Toradol 3 times a day but take it with food. Also continue with your other medications as currently prescribed by your provider. I have given you some pain medication to take in case that you have severe relapse. Should you have any other concerns or problems return to ER for recheck. Prescriptions: Ketorolac Tromethamine [Toradol 10 mg Tablet] 10 mg PO TID PRN #21 tablet PRN Reason: Referrals: TE DONOHUE MD [Primary Care Provider] - Follow up as needed Original Note: ED General - General Chief Complaint: Chest Pain Stated Complaint: CHEST PAIN Time Seen by Provider: 07/29/18 15:46 Primary Care Provider: TE DONOHUE MD [Primary Care Provider] - Follow up as needed Mode of Arrival: Ambulatory Information source: Patient Notes: Patient is a 58-year-old female comes to the emergency room with onset of left- sided chest discomfort. Patient states that started yesterday at the left side of her chest radiated to her left shoulder and back of her neck on the left side only. Patient denies any fever no nausea vomiting or diarrhea no shortness of breath. Patient does not smoke drink or do drugs. She is on medication for hypertension, anxiety, depression, hyperlipidemia, insomnia. She denies any injury that she knows of. She also started with a cough approximately 4 days ago. But she denies any shortness of breath. The pain is been fairly constant. It is exacerbated by touching the area or movement of the area. TRAVEL OUTSIDE OF THE [place] IN LAST 30 DAYS: No - HPI Onset: Other - 2 days ago Onset/Duration: Constant, Persistent Quality of pain: Sharp, Stabbing, Throbbing Severity: Moderate Pain Level: 4 Associated symptoms: Body/muscle aches Exacerbated by: Movement Relieved by: Denies Similar symptoms previously: Yes Recently seen / treated by doctor: No - Related Data Allergies/Adverse Reactions: Sulfa (Sulfonamide Antibiotics) Allergy (Verified 03/29/18 11:18) Past Medical History - General Information source: Patient - Social History Smoking Status: Unknown if Ever Smoked Cigarette use (# per day): No Chew tobacco use (# tins/day): No Smoking Education Provided: No Frequency of alcohol use: None Drug Abuse: None Lives with: Family Family History: Reviewed & Not Pertinent, Hypertension Patient has suicidal ideation: No Patient has homicidal ideation: No - Past Medical History Cardiac Medical History: Reports: Hx Hypercholesterolemia, Hx Hypertension Denies: Hx Coronary Artery Disease, Hx Heart Attack Pulmonary Medical History: Denies: Hx Asthma, Hx Bronchitis, Hx COPD, Hx Pneumonia Neurological Medical History: Denies: Hx Cerebrovascular Accident, Hx Seizures Endocrine Medical History: Reports: Hx Hypothyroidism Renal/ Medical History: Denies: Hx Peritoneal Dialysis Musculoskeletal Medical History: Reports Hx Arthritis Psychiatric Medical History: Reports: Hx Depression Past Surgical History: Reports: Hx Cholecystectomy. Denies: Hx Hysterectomy - Immunizations Hx Diphtheria, Pertussis, Tetanus Vaccination: Yes Review of Systems - Review of Systems Constitutional: No symptoms reported EENT: No symptoms reported Cardiovascular: See HPI, Chest pain Respiratory: See HPI, Cough Gastrointestinal: No symptoms reported Genitourinary: No symptoms reported Female Genitourinary: No symptoms reported Musculoskeletal: See HPI, Joint pain, Joint swelling, Muscle pain Skin: No symptoms reported Hematologic/Lymphatic: No symptoms reported Neurological/Psychological: No symptoms reported -: Yes All other systems reviewed and negative Physical Exam - Vital signs Vitals: Temp Pulse Resp BP Pulse Ox 98.1 F 75 18 124/82 95 07/29/18 15:19 07/29/18 15:19 07/29/18 15:19 07/29/18 15:19 07/29/18 15:19 Interpretation: Normal - Notes Notes: PHYSICAL EXAMINATION: GENERAL: Patient is well-nourished well-developed 58-year-old female is in no apparent distress on physical exam tonight however she is in moderate amount of pain and discomfort. HEAD: Atraumatic, normocephalic. EYES: Pupils equal round and reactive to light, extraocular movements intact, conjunctiva are normal. ENT: Nares patent, oropharynx clear without exudates. Moist mucous membranes. NECK: Examination patient's cervical spine shows she has some tenderness mostly on the left side of her neck to palpation which appears to increase with movement. She does not have any meningismus sign. She is at increased discomfort with rotation as well as flexion extension but I can move her head freely with no pain or discomfort. LUNGS: Breath sounds clear to auscultation bilaterally and equal. No wheezes rales or rhonchi. HEART: Regular rate and rhythm without murmurs Musculoskeletal: patient's examination of her area of concern is her anterior left chest and shoulder area. Palpation of the shoulder girdle shows no sign of crepitus. There is is tenderness to palpation in the area of the rotator cuff. Patient has decreased range of motion with passive range of motion to shoulder height. And she has tenderness along the left side of the neck down to the scapular border and anterior shoulder area. Patient has good pulses distally on the left side as well as right side. 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 NEUROLOGICAL: Cranial nerves grossly intact. Normal speech, normal gait. Normal sensory, motor exams PSYCH: Flat a fact noted. SKIN: Skin examination does not show any sign of abnormalities. Course - Re-evaluation Re-evalutation: 07/29/18 23:26 Patient's presentation is not 1 of cardiac. Although I did not believe that this presentation was cardiac in nature the cardiac work-up did come back negative. EKGs x2 were normal and cardiac enzymes were normal. White count and all of her counts were also normal. Patient's vital signs on arrival here did not show any sign of tachycardia or suspicious abnormalities. She had a temp of 98.1 a pulse rate of 75 blood pressure 124/82 and respiratory rate of 18 and saturation 95% on room air. Patient does state that she is adopted and does not know her biological family history but she is on Lipitor for hyperlipidemia. Also with the patient's possibility of having a PE she has had no risk factors w ith the exception of her obesity but no other risk factors I can find. She denies being on a long trip she denies any injuries to her legs and she is not short of breath. Given that I have no reason to think she has a PE I do not feel it necessary to do any type of radiologic intervention like a CTA at this time. Patient's Wells score for PE is 0.0. This puts her at a very low risk factor for probability of a PE. Patient's heart score also is very low at 3 points. This puts her in the low class range.` Cardiac chavez again I do not believe patient has any problems with this area. Given the 2 most concerning area elements would be a PE or chest pain I believe she is fairly ruled out of these areas. 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 She was given some Toradol and that seemed to help the pain. At this point we will do the same thing. I will see how patient feels afterward. I did give patient a low dose of Dilaudid which she stated did not work. I then gave her some Ativan because she was very anxious and she sleepily said that did not work. And she requested Toradol and we are waiting to give that at this point. If the Toradol does work on anything we will send her home on Toradol as well. I looked patient up in the [employer] [facility] aware and she does not portray herself as a drug-seeking type behavior person. 07/30/18 00:42 Patient's course of stay here in the emergency room is been very extensive. Is been a difficult time getting to the point will control her pain. Patient was given 0.5 of Dilaudid without any response. She was then given Ativan for her anxiety state that she was and that comparable slightly and then we gave her Toradol that seemed to work the best and pain dissipated. I am going to give her a Toradol for several days and she will continue her clonazepam at home and we will give her a 6 pack of hydrocodone here to take with her for emergency back-up with the weekend. 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
[2018-07-29] MEDS ORDERED: LORAZEPAM INJ 2 MG/1 ML VIAL IV ONE (22:19)
[2018-07-29] MEDS ORDERED: KETOROLAC TROMETHAMINE INJ/PF 30 MG/1 ML SDV IV ONE (23:12)
[2018-07-30] MEDS ORDERED: HYDROCODONE/ACETAMINOPHEN 5-325 MG (6 TAB/ER DISP) PO PRN (00:48)
[2018-07-30 00:51] VITALS: BP 116/78
--- NOTE | 2018-07-30 12:45 | EKG REPORT ---
SEVERITY:- NORMAL ECG - SINUS RHYTHM : Confirmed by: Donna Krishnan 30-Jul-2018 12:44:33
--- NOTE | 2018-07-30 12:45 | EKG REPORT ---
SEVERITY:- NORMAL ECG - SINUS RHYTHM : Confirmed by: Donna Krishnan 30-Jul-2018 12:44:39
== END 2018-07-30 01:00 | disposition home or self-care (01) ==
LOC: ER 15:03
DX: S46.912A Strain of unspecified muscle, fascia and tendon at shoulder and upper arm level, left arm, initial encounter (principal); L40.52 Psoriatic arthritis mutilans; R07.9 Chest pain, unspecified; X58.XXXA Exposure to other specified factors, initial encounter; E78.00 Pure hypercholesterolemia, unspecified; I10 Essential (primary) hypertension; E03.9 Hypothyroidism, unspecified; E78.5 Hyperlipidemia, unspecified; Z90.49 Acquired absence of other specified parts of digestive tract; Z88.2 Allergy status to sulfonamides
CPT/HCPCS: 93005; 99284; 96374; 96375; 36415; 82550; 85025; 80053; 93010; 84484; 71045; J1885; J1170; J2060; J2405

== ENCOUNTER 2018-08-01 10:17 | Emergency (ER) | payer OTHER ==
[2018-08-01] MEDS ORDERED: CYCLOBENZAPRINE HCL 10 MG TABLET PO ONE (12:19)
[2018-08-01] MEDS ORDERED: KETOROLAC TROMETHAMINE 60 MG/2 ML SDV IM ONE (12:19)
[2018-08-01] MEDS ORDERED: LIDOCAINE 5% (700 MG) TRANSDERMAL ADH..PATCH TP ONE (12:19)
[2018-08-01] MEDS ORDERED: DEXAMETHASONE SOD PHOS INJ 10 MG/1 ML VIAL IM ONE (12:19)
--- NOTE | 2018-08-01 12:25 | ER Document Report ---
ED Extremity Problem, Upper - General Chief Complaint: Shoulder Pain Stated Complaint: LEFT SHOULDER PAIN Time Seen by Provider: 08/01/18 12:07 Primary Care Provider: [facility] [Provider Group] - Follow up as needed TE DONOHUE MD [Primary Care Provider] - Follow up as needed Mode of Arrival: Ambulatory Information source: Patient Notes: 58-year-old female presents to ED for left shoulder pain. She states she was seen here [facility] and diagnosed with arthritis. She states there is something much worse wrong with her pain. She states the pain medication she was given was not helping. She states she needs orthopedic to do something about her shoulder now. Explained to her that we do not have orthopedics compensation advisor for the emergency room. She states that the Toradol injection did help some and we will give her another Toradol injection at this time. Also apply a lidocaine Derm patch give her Decadron injection and give her Flexeril when her family arrives to the emergency room. TRAVEL OUTSIDE OF THE [place] IN LAST 30 DAYS: No - HPI Patient complains to provider of: Left, Shoulder Onset: Other Recent injury: No Quality of pain: Sharp, Throbbing Severity of pain: Moderate, Severe Pain Level: 4 Associated symptoms: None Exacerbated by: Movement, Exertion Relieved by: Nothing Similar symptoms previously: Yes Recently seen / treated by doctor: Yes - Related Data Allergies/Adverse Reactions: Sulfa (Sulfonamide Antibiotics) Allergy (Verified 08/01/18 10:18) Past Medical History - General Information source: Patient - Social History Smoking Status: Never Smoker Frequency of alcohol use: None Drug Abuse: None Lives with: Family Family History: Reviewed & Not Pertinent, Hypertension Patient has suicidal ideation: No Patient has homicidal ideation: No - Past Medical History Cardiac Medical History: Reports: Hx Hypercholesterolemia, Hx Hypertension Pulmonary Medical History: Reports: None EENT Medical History: Reports: None Neurological Medical History: Reports: None Endocrine Medical History: Reports: Hx Hypothyroidism Renal/ Medical History: Reports: None Malignancy Medical History: Reports: None GI Medical History: Reports: None Musculoskeletal Medical History: Reports Hx Arthritis Skin Medical History: Reports None Psychiatric Medical History: Reports: Hx Depression Traumatic Medical History: Reports: None Infectious Medical History: Reports: None Past Surgical History: Reports: Hx Cholecystectomy - Immunizations Hx Diphtheria, Pertussis, Tetanus Vaccination: Yes Review of Systems - Review of Systems Constitutional: No symptoms reported EENT: No symptoms reported Cardiovascular: No symptoms reported Respiratory: No symptoms reported Gastrointestinal: No symptoms reported Genitourinary: No symptoms reported Female Genitourinary: No symptoms reported Musculoskeletal: Joint pain - Left shoulder Skin: No symptoms reported Hematologic/Lymphatic: No symptoms reported Neurological/Psychological: No symptoms reported Physical Exam - Vital signs Vitals: Temp Pulse Resp BP Pulse Ox 97.8 F 69 20 124/85 92 08/01/18 10:34 08/01/18 10:34 08/01/18 10:34 08/01/18 10:34 08/01/18 10:34 Interpretation: Normal - General General appearance: Appears well, Alert - HEENT Head: Normocephalic, Atraumatic Eyes: Normal Pupils: PERRL - Respiratory Respiratory status: No respiratory distress Chest status: Nontender Breath sounds: Normal Chest palpation: Normal - Cardiovascular Rhythm: Regular Heart sounds: Normal auscultation Murmur: No - Abdominal Inspection: Normal Distension: No distension Bowel sounds: Normal Tenderness: Nontender Organomegaly: No organomegaly - Back Back: Normal, Nontender - Extremities General upper extremity: Normal color, Normal ROM, Normal temperature General lower extremity: Normal inspection, Nontender, Normal color, Normal ROM, Normal temperature, Normal weight bearing. No: Monico's sign Shoulder: No: Limited ROM - Pain with range of motion but has full range of motion 5 out of 5 strength to the deltoid and bicep - Neurological Neuro grossly intact: Yes Cognition: Normal Orientation: AAOx4 Lorenzo Coma Scale Eye Opening: Spontaneous [place] Coma Scale Verbal: Oriented Lorenzo Coma Scale Motor: Obeys Commands Lorenzo Coma Scale Total: 15 Speech: Normal Motor strength normal: LUE, RUE, LLE, RLE Sensory: Normal - Psychological Associated symptoms: Normal affect, Normal mood - Skin Skin Temperature: Warm Skin Moisture: Dry Skin Color: Normal Course - Re-evaluation Re-evalutation: 08/01/18 12:27 Patient was treated with Toradol injection, Decadron injection, Lidoderm patch and Flexeril by mouth for her pain to the right shoulder. She was instructed to follow-up with orthopedics as previously instructed. She was also given instructions for exercises for her shoulder. - Vital Signs Vital signs: Temp Pulse Resp BP Pulse Ox 97.8 F 66 18 145/111 H 96 08/01/18 10:34 08/01/18 12:43 08/01/18 12:43 08/01/18 12:43 08/01/18 12:43 Discharge - Discharge Clinical Impression: Left shoulder pain Qualifiers: Chronicity: unspecified Qualified Code(s): M25.512 - Pain in left shoulder Condition: Stable Disposition: HOME, SELF-CARE Additional Instructions: Arthritis Your symptoms are due to arthritis. Arthritis is an inflammation of the joints. There are many types -- osteoarthritis (due to "wear and tear"), auto- immmune arthritis (such as rheumatoid, lupus, Mj's, and others), and elisa l-induced arthritis (such as gout and pseudogout). The physician's examination, combined with laboratory tests, will determine the cause of your arthritis. All types of arthritis are treated with antiinflammatory medications. Other medication may be required for special types of arthritis, or if your problem does not respond to the antiinflammatory medicine. Local warmth may be helpful. Move the involved joints through the full range of motion daily. Mild exercise is usually still possible for most persons with arthritis (ask your physician). Swimming provides good exercise without damaging the joints. Contact the physician if you are worsening in any way. Ice Packs Apply ice packs frequently against the painful area. Many different schedules are recommended, such as "20 minutes on, 20 minutes off" or "one hour ice, two hours rest." If you need to work, you may need to go longer between ice treatments. You should plan to have the area ice packed AT LEAST one fourth of the time. The ice should be applied over the wrap, tape, or splint, or over a layer of cloth -- not directly against the skin. Some ice bags have a built-in cloth and can be put directly on the skin. STEROID MEDICATION: You have been given an injection of medicine of the cortisone/steroid class. This medication is used to control inflammation or allergy. It is often continued as a pill for a short period of time, until the acute process subsides. There are usually no side effects from short-term use of cortisone-like medications. Some persons feel an increased sense of well-being and are not sleepy at bedtime. Long-term use of cortisone medications is best avoided, unless required for a severe condition. If your condition does not remit, or relapses after the course of corticosteroid medication, you should consult your physician. Toradol Injection You have been given an injection of ketorolac tromethamine (Toradol). This is an excellent, safe drug for pain control. It also has potent antiinflammatory action. You should have significant pain relief within about one hour. Toradol is not addicting and is non-sedating. It does not interfere with driving or work. Call or return if you develop itching, hives, shortness of breath, or rash. Exercise Program for the Shoulder Since the shoulder moves in so many directions, the joint attachment is weak. Muscles provide most of the stability to the shoulder. You must exercise your shoulder to prevent painful instability or stiffening. PASSIVE - These may be begun within a few days of the injury. While standing, lean forward, allowing the arm to hang down towards the floor. Move the arm in small circles while slowly twisting your chest towards and away from the hanging arm. Do this for one minute. ACTIVE - These may be performed when the doctor gives permission. Begin with the arms at the sides. Raise the arms forward (shoulder's width apart) until they reach shoulder level. Then slowly swing both arms back until they are aiming straight out away from each other. Then bring them forward again, and finally, lower them to your sides. Repeat 20 to 30 times. As you improve, put weights in your hands for the exercise. Start with one pound, and work up to 10 pounds. Never use more than is comfortable. Athletes may work up to 30 pounds. Lidoderm patch has been applied to the most painful area at this time. This needs to be removed in 12 hours. You can buy lidocaine patches over the counter that are almost as strong as this 1. If you decide to buy them please leave the patch off for 12 hours then reapply a leave on for 12 hours. FOLLOW-UP CARE: If you have been referred to a physician for follow-up care, call the physician s office for an appointment as you were instructed or within the next two days. If you experience worsening or a significant change in your symptoms, notify the physician immediately or return to the Emergency Department at any time for re-evaluation. Prescriptions: Cyclobenzaprine HCl [Flexeril 10 mg Tablet] 10 mg PO TIDP PRN #15 tab PRN Reason: Lidocaine [Lidoderm 5% (700 mg) Transdermal Patch] 1 patch TP DAILY #30 adh..patch Referrals: TE DONOHUE MD [Primary Care Provider] - Follow up as needed [facility] [Provider Group] - Follow up as needed
[2018-08-01 12:46] VITALS: BP 145/111
== END 2018-08-01 12:43 | disposition home or self-care (01) ==
LOC: ER 10:17
DX: M25.512 Pain in left shoulder (principal); M19.90 Unspecified osteoarthritis, unspecified site; I10 Essential (primary) hypertension; Z88.2 Allergy status to sulfonamides
CPT/HCPCS: 99283; 96372; J1885; J1100

== ENCOUNTER 2018-08-02 23:51 | Inpatient (IN) | payer OTHER ==
[2018-08-03] MEDS ORDERED: NORMAL SALINE 1000 ML 2,000 ML IV ONE (00:13)
[2018-08-03] MEDS ORDERED: NALOXONE HCL INJ 2 MG/2 ML DISP.SYRIN IV ONE (00:13)
[2018-08-03 00:23] LABS: ABSOLUTE BASOPHILS # (AUTO) 0.1 10^3/uL (0.0-0.2); ABSOLUTE EOSINOPHILS # (AUTO) 0.1 10^3/uL (0.0-0.6); ABSOLUTE LYMPHOCYTES (AUTO) 2.1 10^3/uL (0.5-4.7); ABSOLUTE MONOCYTES (AUTO) 0.8 10^3/uL (0.1-1.4); ABSOLUTE NEUT (AUTO) 7.2 10^3/uL (1.7-8.2); BASOPHILS % (AUTO) 0.6 % (0-2); EOSINOPHILS % (AUTO) 0.6 % (0-6); LYMPHOCYTES % (AUTO) 20.6 % (13-45); MEAN CORPUSCULAR HEMOGLOBIN 29.5 pg (27.0-33.4); MEAN CORPUSCULAR VOLUME 87 fl (80-97); PLATELET COUNT 224 10^3/uL (150-450); RED BLOOD COUNT 5.07 10^6/uL (3.72-5.28); RED CELL DISTRIBUTION WIDTH 12.5 % (11.5-14.0); SEGMENTED NEUTROPHILS % (AUTO) 70.2 % (42-78); TOTAL CELLS COUNTED % (AUTO) 100 %; WHITE BLOOD COUNT 10.3 10^3/uL (4.0-10.5)
--- NOTE | 2018-08-03 00:28 | ER Document Report ---
ED General - General Stated Complaint: POSSIBLE OVERDOSE Time Seen by Provider: 08/03/18 00:12 Primary Care Provider: TE DONOHUE MD [Primary Care Provider] - Follow up as needed TRAVEL OUTSIDE OF THE [place] IN LAST 30 DAYS: No - HPI Notes: Patient is a 58-year-old female that presents to the emergency department for chief complaint of unintentional overdose. Patient has been is at bedside and providing HPI. He states that over the weekend she has been having pain in her left shoulder and has been prescribed multiple new medications. Tonight she took her medications around 8:30 PM and then fell asleep. states when he went to check on her at 1030 she was sitting on the floor next to the bed and not responding. He is not sure if she fell or attempted to get up and sat down. Patient is reportedly on Valium, Flexeril, Percocet, Ambien, gabapentin, and Toradol for her left shoulder pain. She presented by EMS and no interventions were performed by EMS. Patient is unresponsive and not providing any HPI. believes that the overdose was unintentional and she has not had any suicidal gestures to him. Past Medical History: Hypertension, hyperlipidemia, hypothyroidism, depression, anxiety Past Surgical History: Reviewed in chart Social History: Reviewed in chart Family History: Reviewed and noncontributory for presenting illness Allergies: Reviewed, see documented allergy list. REVIEW OF SYSTEMS: Unable to obtain because of acuity of condition PHYSICAL EXAMINATION: Vital signs reviewed, nursing noted reviewed. GENERAL: Unresponsive, pale, obese HEAD: Atraumatic, normocephalic. EYES: Eyes appear normal, extraocular movements intact, sclera anicteric, conjunctiva are normal. ENT: nares patent, oropharynx clear without exudates. Dry mucous membranes. NECK: No apparent midline tenderness or step-offs, supple without lymphadenopathy LUNGS: Shallow tachypneic respirations, breath sounds clear to auscultation bilaterally and equal. No wheezes rales or rhonchi. HEART: Regular rate and rhythm without murmurs ABDOMEN: Soft, nontender, normoactive bowel sounds. No rebound, guarding, or rigidity. No masses appreciated. EXTREMITIES: Nontender, no long bone deformity, no pitting or edema. NEUROLOGICAL: GCS 10. Patient responding to painful stimuli, moving all extremities SKIN: Warm, Dry, normal turgor, no rashes or lesions noted on exposed skin - Related Data Allergies/Adverse Reactions: Sulfa (Sulfonamide Antibiotics) Allergy (Verified 08/01/18 10:18) Past Medical History - Social History Smoking Status: Unknown if Ever Smoked Family History: Reviewed & Not Pertinent, Hypertension - Past Medical History Cardiac Medical History: Reports: Hx Hypercholesterolemia, Hx Hypertension Denies: Hx Heart Attack Pulmonary Medical History: Denies: Hx Asthma, Hx Bronchitis, Hx COPD, Hx Pneumonia Neurological Medical History: Denies: Hx Cerebrovascular Accident, Hx Seizures Endocrine Medical History: Reports: Hx Hypothyroidism Renal/ Medical History: Denies: Hx Peritoneal Dialysis Musculoskeletal Medical History: Reports Hx Arthritis Psychiatric Medical History: Reports: Hx Depression Past Surgical History: Reports: Hx Cholecystectomy. Denies: Hx Hysterectomy - Immunizations Hx Diphtheria, Pertussis, Tetanus Vaccination: Yes Physical Exam - Vital signs Vitals: Resp BP Pulse Ox 16 90/55 L 99 08/03/18 00:21 08/03/18 00:21 08/03/18 00:21 Course - Re-evaluation Re-evalutation: 08/03/18 00:26 Vitals reviewed. Nursing notes reviewed. Patient presented with a GCS of 10. She is oxygenating well on 3 L nasal cannula and is currently protecting her airway and not requiring intubation. She was hypotensive and to peripheral IVs were placed and she was started on fluid resuscitation. Patients BP is improving with hydration. Because of her possible fall she was placed in a cervical collar. Imaging will be obtained to evaluate for injury of her head and neck during the fall. There is no other apparent signs of injury to her extremities or back. Patient's ingestion was 4 hours ago. She has not had any response to Narcan. Accu-Chek was stable at 104. 08/03/18 04:36 Patient's blood pressure has stabilized after 3 L of IV fluid. Her lab work shows an elevation of her LFTs with normal bilirubin. She is status post cholecystectomy. CT scan of the abdomen pelvis shows no acute intra-abdominal process. Patient has an elevated lactate which is likely related to her shock state at presentation. Her mentation has gradually improved and she is now having some response to verbal stimuli and has opened her eyes to look at her spontaneously. Patient has no leukocytosis. X-ray shows no acute pneumonia. I do not see any signs of infection at this time requiring antibiotics. Her shock is likely related to her overdose and not sepsis. Patient's was insistent that this was a accidental overdose and he is not suspicious of any suicide attempt. Patient will be admitted to the hospital for further medical management. Her care was discussed with Dr. Patino who accepts admission. Chest X-Ray 08/03/18 00:13 IMPRESSION: Mild interstitial edema. Tiny right effusion and/or pleural thickening copyright 2010 [facility]- All Rights Reserved Head CT 08/03/18 00:13 IMPRESSION: No acute intracranial abnormality is identified. Cervical Spine CT 08/03/18 00:14 IMPRESSION: 1. No acute fracture or subluxation of the cervical spine. 2. Multilevel degenerative change of the cervical spine. This exam was performed according to our departmental dose-optimization program, which includes automated exposure control, adjustment of the mA and/or kV according to patient size and/or use of iterative reconstruction technique. Laboratory 08/03/18 08/03/18 08/03/18 00:05 00:05 00:05 WBC 10.3 RBC 5.07 Hgb 15.0 Hct 44.0 MCV 87 MCH 29.5 MCHC 34.0 RDW 12.5 Plt Count 224 Seg Neutrophils % 70.2 Lymphocytes % 20.6 Monocytes % 8.0 Eosinophils % 0.6 Basophils % 0.6 Absolute Neutrophils 7.2 Absolute Lymphocytes 2.1 Absolute Monocytes 0.8 Absolute Eosinophils 0.1 Absolute Basophils 0.1 Sodium 138.0 Potassium 4.8 Chloride 101 Carbon Dioxide 27 Anion Gap 10 BUN 18 Creatinine 1.24 Est GFR ( Amer) 54 L Est GFR (Non-Af Amer) 45 L Glucose 102 Calcium 9.7 Total Bilirubin 0.6 Direct Bilirubin 0.4 Neonat Total Bilirubin Not Reportable Neonat Direct Bilirubin Not Reportable Neonat Indirect Bili Not Reportable AST 439 H ALT 216 H Alkaline Phosphatase 138 H Troponin I < 0.012 Total Protein 6.5 Albumin 4.4 TSH Salicylates Acetaminophen Serum Alcohol < 10 08/03/18 08/03/18 00:05 00:05 WBC RBC Hgb Hct MCV MCH MCHC RDW Plt Count Seg Neutrophils % Lymphocytes % Monocytes % Eosinophils % Basophils % Absolute Neutrophils Absolute Lymphocytes Absolute Monocytes Absolute Eosinophils Absolute Basophils Sodium Potassium Chloride Carbon Dioxide Anion Gap BUN Creatinine Est GFR ( Amer) Est GFR (Non-Af Amer) Glucose Calcium Total Bilirubin Direct Bilirubin Neonat Total Bilirubin Neonat Direct Bilirubin Neonat Indirect Bili AST ALT Alkaline Phosphatase Troponin I Total Protein Albumin TSH 2.60 Salicylates < 1.0 L Acetaminophen < 10 L Serum Alcohol - Vital Signs Vital signs: Temp Pulse Resp BP Pulse Ox 97.0 F 18 123/73 96 08/03/18 01:21 08/03/18 04:00 08/03/18 02:57 08/03/18 04:00 - Laboratory Result Diagrams: 08/03/18 00:05 08/03/18 00:05 Laboratory results interpreted by me: 08/03/18 08/03/18 00:05 00:05 Est GFR ( Amer) 54 L Est GFR (Non-Af Amer) 45 L AST 439 H ALT 216 H Alkaline Phosphatase 138 H Salicylates < 1.0 L Acetaminophen < 10 L - EKG Interpretation by Me Additional EKG results interpreted by me: 08/03/18 00:28 Interpreted by myself [id number]: Normal sinus rhythm, rate 61, normal axis, no ectopy, no STEMI, no significant change from 07/29/2018 Critical Care Note - Critical Care Note Total time excluding time spent on procedures (mins): 50 Comments: Critical care time 50 exclusive from separate billable procedures for a patient requiring complex medical decision making, and high potential for clinical deterioration. Time spent obtaining history from patient or surrogate, discussions with consultants, development of treatment plan with patient or surrogate, evaluation of patient's response to treatment, examination of patient, ordering and performing treatments and interventions, ordering and review of laboratory studies, re-evaluation of patient's condition, ordering and review of radiographic studies and review of old charts Discharge - Discharge Clinical Impression: Lactic acidosis Polysubstance overdose Qualifiers: Encounter type: initial encounter Injury intent: accidental or unintentional Qualified Code(s): T50.901A - Poisoning by unspecified drugs, medicaments and biological substances, accidental (unintentional), initial encounter Altered mental status Qualifiers: Altered mental status type: coma Coma depth: [place] coma 9-12 Coma timing: in the field (EMT or ambulance) Qualified Code(s): R40.2421 - [place] coma scale score 9-12, in the field [EMT or ambulance] Condition: Critical Disposition: ADMITTED INPATIENT Admitting Provider: Carey (Hospitalist) Unit Admitted: ICU Referrals: TE DONOHUE MD [Primary Care Provider] - Follow up as needed
[2018-08-03 00:32] LABS: ALANINE AMINOTRANSFERASE 216 U/L (9-52); ALBUMIN 4.4 g/dL (3.5-5.0); ALKALINE PHOSPHATASE 138 U/L (38-126); ANION GAP 10 (5-19); ASPARTATE AMINO TRANSFERASE 439 U/L (14-36); BILIRUBIN,DIRECT 0.4 mg/dL (0.0-0.4); BILIRUBIN,TOTAL 0.6 mg/dL (0.2-1.3); BLOOD UREA NITROGEN 18 mg/dL (7-20); CALCIUM 9.7 mg/dL (8.4-10.2); CARBON DIOXIDE 27 mmol/L (22-30); CHLORIDE 101 mmol/L (98-107); GLUCOSE 102 mg/dL (75-110); POTASSIUM 4.8 mmol/L (3.6-5.0); TOTAL PROTEIN 6.5 g/dL (6.3-8.2)
[2018-08-03 00:35] LABS: ALCOHOL < 10 mg/dL (NONE DETECTED)
--- NOTE | 2018-08-03 00:52 | RADIOLOGY REPORT (SQ) ---
EXAM DESCRIPTION: XR CHEST 1 VIEW COMPLETED DATE/TME: 08/03/2018 00:13 CLINICAL HISTORY: 58 years, Female, unresponsive COMPARISON: 07/29/2018 chest NUMBER OF VIEWS: 1 TECHNIQUE: Portable chest LIMITATIONS: None. FINDINGS: The heart size is stable. Artifact projects over the lower left hemithorax with overlying cardiac leads and wires. Mild interstitial edema is suggested with tiny right pleural effusion and/or pleural thickening IMPRESSION: Mild interstitial edema. Tiny right effusion and/or pleural thickening copyright 2010 [employer]- All Rights Reserved
--- NOTE | 2018-08-03 01:02 | RADIOLOGY REPORT (SQ) ---
EXAM DESCRIPTION: CT CERVICAL SPINE WITHOUT IV CONTRAST COMPLETED DATE/TME: 08/03/2018 00:14 CLINICAL HISTORY: FOUND ON FLOOR UNRESPONSIVE, OD COMPARISON: None available TECHNIQUE: Axial CT of the cervical spine obtained without contrast. FINDINGS: Alignment of the cervical spine is maintained without evidence of subluxation. The atlantoaxial, atlantodental, and occipitoatlantal intervals are preserved. No fracture identified. Vertebral body height preserved. Prevertebral soft tissues are unremarkable. Moderate multilevel loss of intervertebral disc height with endplate spondylosis, uncovertebral spurring, and facet arthropathy. Spurring of the atlantodental articulation. Visualized skull base is intact. No fracture of the visualized facial bones. Visualized mastoid air cells and paranasal sinuses are well aerated. Visualized thyroid is unremarkable. No cervical lymphadenopathy. No pneumothorax in the visualized lung apices. Small right pleural effusion. DLP: 275.66 mGy-cm IMPRESSION: 1. No acute fracture or subluxation of the cervical spine. 2. Multilevel degenerative change of the cervical spine. This exam was performed according to our departmental dose-optimization program, which includes automated exposure control, adjustment of the mA and/or kV according to patient size and/or use of iterative reconstruction technique.
--- NOTE | 2018-08-03 01:03 | RADIOLOGY REPORT (SQ) ---
PROCEDURE: CLINICAL HISTORY: 58 years Female unresponsive, od COMPARISON: 02/28/2017 TECHNIQUE: Contiguous axial CT images obtained through the brain without IV contrast. This exam was performed according to our department optimization program which includes automated exposure control, adjustment of the mA and/or kv according to patient size and/or use of iterative reconstruction technique. FINDINGS: The ventricles and sulci are within normal limits for the patient's age. No midline shift or mass effect. No masses identified. No acute intracranial hemorrhage. Mucous retention cyst or polyp in the right maxillary sinus. No fluid or significant mucosal thickening in the visualized paranasal sinuses. No depressed calvarial fractures. IMPRESSION: No acute intracranial abnormality is identified.
[2018-08-03 01:26] LABS: ACETAMINOPHEN < 10 ug/mL (10-30); SALICYLATE < 1.0 mg/dL (2.0-20.0)
[2018-08-03] MEDS ORDERED: NORMAL SALINE 1000 ML 1,000 ML IV ONE ×2 (02:06)
--- NOTE | 2018-08-03 03:46 | RADIOLOGY REPORT (SQ) ---
CLINICAL HISTORY: elevated LFTs COMPARISON: None. TECHNIQUE: CT ABDOMEN PELVIS WITH IV CONTRAST on 08/03/2018 1:33 AM CDT This exam was performed according to our departmental dose-optimization program, which includes automated exposure control, adjustment of the mA and/or kV according to patient size and/or use of iterative reconstruction technique. FINDINGS: There are small pleural effusions. There is bibasilar atelectasis. Abdomen: The liver is normal in appearance. There is no biliary dilatation. Cholecystectomy was performed. There is a small hiatal hernia. The pancreas and spleen are normal in appearance. The adrenal glands and kidneys are unremarkable. Abdominal aorta is normal in course and caliber without aneurysm. There is no free air. There is no retroperitoneal adenopathy. Pelvis: There is large amount of stool and fluid throughout the colon. Urinary bladder is unremarkable. There is no free fluid. Appendix is normal. Hysterectomy was performed. Skeleton: There are no acute osseous findings. No suspicious bony lesions. IMPRESSION: Unremarkable appearance of the liver following cholecystectomy. Extensive constipation. Trace effusions.
[2018-08-03 04:23] LABS: APPEARANCE,URINE SLIGHTLY-CLOUDY; BILIRUBIN,URINE SMALL (NEGATIVE); COLOR,URINE AMBER; GLUCOSE, URINE NEGATIVE (NEGATIVE); KETONES,URINE TRACE mg/dL (NEGATIVE); LEUKOCYTE ESTERASE,URINE NEGATIVE (NEGATIVE); NITRITE,URINE NEGATIVE (NEGATIVE); PROTEIN,URINE NEGATIVE (NEGATIVE); URINE SPECIFIC GRAVITY 1.024
[2018-08-03 04:42] LABS: URINE AMPHETAMINES SCREEN NEGATIVE; URINE BARBITURATES SCREEN NEGATIVE; URINE COCAINE SCREEN NEGATIVE; URINE MARIJUANA (THC) SCREEN NEGATIVE; URINE METHADONE SCREEN NEGATIVE; URINE PHENCYCLIDINE SCREEN NEGATIVE
[2018-08-03] MEDS ORDERED: GLUCAGON,HUMAN RECOMB 1 MG INJ SUBCUT PRN (05:07)
[2018-08-03] MEDS ORDERED: DEXTROSE 50%-WATER 25 GM/50 ML DISP.SYRIN IV PRN ×2 (05:07)
[2018-08-03] MEDS ORDERED: RINGERS SOLUTION,LACTATED 1,000 ML IV PRN (05:07)
[2018-08-03] MEDS ORDERED: MAGNESIUM HYDROXIDE SUSP 30 ML UDCUP PO PRN (05:07)
[2018-08-03] MEDS ORDERED: MAG HYDROX/AL HYDROX/SIMETH SUSP 30 ML UDCUP PO PRN (05:07)
[2018-08-03] MEDS ORDERED: DEXTROSE 40% GEL 15 GM TUBE PO PRN ×2 (05:07)
[2018-08-03] MEDS ORDERED: NICOTINE 21 MG/24 HR PATCH.TD24 TD PRN (05:14)
[2018-08-03] MEDS ORDERED: ACETAMINOPHEN 650 MG SUPP.RECT PR PRN (05:14)
--- NOTE | 2018-08-03 05:58 | PDOC H&P ---
History of Present Illness Admission Date/PCP: 08/03/2018 TE DONOHUE MD Patient complains of: Drug overdose History of Present Illness: BERTHA FAULKNER is a 58 year old female who presented to the emergency room via EMS for a multiple drug overdose. The patient's admits that she had been prescribed multiple new medications for treatment of a new acute pain in her left shoulder and on the evening prior to admission she had taken her medications and then fell asleep. He found her approximately 2 hours later sitting on the floor next to her bed and being poorly responsive, thus prompting him to call EMS. Upon EMS arrival the patient was unresponsive and she was transported to the emergency room. Her states that she had recently received prescriptions for Valium, Flexeril, Percocet, Ambien, gabapentin and Toradol. He is uncertain what combination of medications or numbers of the medication she may have taken. He does not feel that she was intentionally t rying to harm herself as she has not been depressed recently or making any overtures or gestures suggestive of suicidal intent. She does have a past history of overdose and possible suicide attempt. The patient herself is poorly responsive and unable to provide reliable information to contribute to her medical care at this time. In the emergency room she was found to be mildly hypotensive initially but responded well to fluid bolus therapy. She has been able to tolerate supplemental oxygen via nasal cannula to maintain an adequate oxygenation. She will be admitted to the hospital for further evaluation and treatment initially in the ICU. Past Medical History Cardiac Medical History: Reports: Hyperlipidema, Hypertension Denies: Myocardial Infarction Pulmonary Medical History: Denies: Asthma, Bronchitis, Chronic Obstructive Pulmonary Disease (COPD), Pneumonia EENT Medical History: Denies: Cataracts, Ears - Hearing aids Neurological Medical History: Denies: Hemorrhagic CVA, Ischemic CVA, Seizures Endocrine Medical History: Reports: Hypothyroidism Denies: Diabetes Mellitus Type 1, Diabetes Mellitus Type 2, Hyperthyroidism Renal/ Medical History: Denies: Chronic Kidney Disease, Nephrolithiasis Malignancy Medical History: Reports: None GI Medical History: Denies: Cirrhosis, Hepatitis Musculoskeltal Medical History: Reports: Arthritis Denies: Gout Skin Medical History: Denies: Eczema, Psoriasis Psychiatric Medical History: Reports: Bipolar Disorder, Depression, General A nxiety Disorder, Other - Suicidal ideation and gesture/attempt Denies: Alcohol Dependency, Substance Abuse, Tobacco Dependency Traumatic Medical History: Reports: None Hematology: Denies: Anemia, Bleeding Tendencies Infectious Medical History: Reports: None Past Surgical History Past Surgical History: Reports: Cholecystectomy Social History Information Source: Relative Lives with: Spouse/Significant other Smoking Status: Current Every Day Smoker Frequency of Alcohol Use: None Hx Recreational Drug Use: No Drugs: None Hx Prescription Drug Abuse: Yes - History of previous opiate overdose - Advance Directive Resuscitation Status: Full Code Surrogate healthcare decision maker:: Shiv Faulkner Family History Family History: Hypertension Parental Family History Reviewed: Yes Children Family History Reviewed: No Sibling(s) Family History Reviewed.: Yes Medication/Allergy Home Medications: Atorvastatin Calcium 20 mg PO QHS 02/28/17 Clonazepam 2 mg PO DAILY 02/28/17 Gabapentin 300 mg PO BID 02/28/17 Levothyroxine Sodium [Synthroid 0.075 mg Tablet] 0.075 mg PO DAILY 02/28/17 Losartan Potassium 100 mg PO DAILY 02/28/17 Ondansetron HCl 8 mg PO DAILY PRN 02/28/17 Quetiapine Fumarate 600 mg PO QHS 02/28/17 Trazodone HCl 300 mg PO QHS 02/28/17 Amlodipine Besylate 2.5 mg PO DAILY 07/05/17 Bupropion HCl [Wellbutrin 100 mg Tablet] 300 mg PO DAILY 07/05/17 Escitalopram Oxalate [Lexapro] 20 mg PO DAILY 07/05/17 Zolpidem Tartrate [Ambien] 12.5 mg PO DAILY 07/05/17 Pantoprazole Sodium 40 mg PO DAILY 03/29/18 Ketorolac Tromethamine [Toradol 10 mg Tablet] 10 mg PO TID PRN #21 tablet 07/30/18 Cyclobenzaprine HCl [Flexeril 10 mg Tablet] 10 mg PO TIDP PRN #15 tab 08/01/18 Lidocaine [Lidoderm 5% (700 mg) Transdermal Patch] 1 patch TP DAILY #30 adh..patch 08/01/18 Allergies/Adverse Reactions: Sulfa (Sulfonamide Antibiotics) Allergy (Verified 08/01/18 10:18) Review of Systems ROS unobtainable: Due to mental status - Patient is not responsive to verbal stimuli at present time. Physical Exam Vital Signs: Temp Pulse Resp BP Pulse Ox 97.0 F 18 123/73 96 08/03/18 01:21 08/03/18 04:00 08/03/18 02:57 08/03/18 04:00 Intake & Output 08/01/18 08/02/18 08/03/18 23:59 23:59 23:59 Intake Total 3000 Balance 3000 Weight 97 kg General appearance: PRESENT: obese, other - Poorly responsive to verbal and light tactile stimuli. Responsive to pain. Head exam: PRESENT: atraumatic, normocephalic Eye exam: ABSENT: conjunctival injection, scleral icterus Ear exam: PRESENT: normal external ear exam. ABSENT: bleeding, drainage Mouth exam: PRESENT: dry mucosa, neck supple Neck exam: ABSENT: thyromegaly, tracheal deviation Respiratory exam: PRESENT: clear to auscultation josep, symmetrical, unlabored Cardiovascular exam: PRESENT: RRR. ABSENT: clicks, gallop, rubs Pulses: PRESENT: normal radial pulses, normal dorsalis pedis pul Vascular exam: PRESENT: normal capillary refill. ABSENT: pallor GI/Abdominal exam: PRESENT: normal bowel sounds, soft Rectal exam: PRESENT: deferred Extremities exam: ABSENT: joint swelling, pedal edema Musculoskeletal exam: ABSENT: deformity, dislocation Neurological exam: PRESENT: altered - Poorly responsive to verbal and light tactile stimuli. Responsive to pain. Further evaluation is otherwise deferred to a later time when she becomes more responsive., CN II-XII grossly intact Psychiatric exam: PRESENT: other - Patient is poorly responsive and unable to be assessed. Skin exam: PRESENT: dry, intact, warm. ABSENT: jaundice, rash, urticaria Results Laboratory Results: 08/03/18 00:05 08/03/18 00:05 08/03/18 08/03/18 08/03/18 00:05 00:05 00:05 WBC 10.3 RBC 5.07 Hgb 15.0 Hct 44.0 MCV 87 MCH 29.5 MCHC 34.0 RDW 12.5 Plt Count 224 Seg Neutrophils % 70.2 Lymphocytes % 20.6 Monocytes % 8.0 Eosinophils % 0.6 Basophils % 0.6 Absolute Neutrophils 7.2 Absolute Lymphocytes 2.1 Absolute Monocytes 0.8 Absolute Eosinophils 0.1 Absolute Basophils 0.1 Sodium 138.0 Potassium 4.8 Chloride 101 Carbon Dioxide 27 Anion Gap 10 BUN 18 Creatinine 1.24 Est GFR ( Amer) 54 L Est GFR (Non-Af Amer) 45 L Glucose 102 Calcium 9.7 Total Bilirubin 0.6 AST 439 H ALT 216 H Alkaline Phosphatase 138 H Total Protein 6.5 Albumin 4.4 TSH 2.60 08/03/18 00:05 Troponin I < 0.012 Impressions: Chest X-Ray 08/03/18 00:13 IMPRESSION: Mild interstitial edema. Tiny right effusion and/or pleural thickening copyright 2010 [employer]- All Rights Reserved Head CT 08/03/18 00:13 IMPRESSION: No acute intracranial abnormality is identified. Cervical Spine CT 08/03/18 00:14 IMPRESSION: 1. No acute fracture or subluxation of the cervical spine. 2. Multilevel degenerative change of the cervical spine. This exam was performed according to our departmental dose-optimization program, which includes automated exposure control, adjustment of the mA and/or kV according to patient size and/or use of iterative reconstruction technique. Assessment and Plan - Diagnosis (1) Altered mental status Qualifiers: Altered mental status type: coma Coma depth: [place] coma 9-12 Coma timing: in the field (EMT or ambulance) Qualified Code(s): R40.2421 - [place] coma scale score 9-12, in the field [EMT or ambulance] Is this a current diagnosis for this admission?: Yes Plan: Patient is admitted to the ICU for further evaluation and treatment. She will receive supportive and symptomatic cares during her ICU course. She will be given IV fluids and monitored closely for improvements in her medical/mental status. (2) Polysubstance overdose Qualifiers: Encounter type: initial encounter Injury intent: accidental or unintentional Qualified Code(s): T50.901A - Poisoning by unspecified drugs, medicaments and biological substances, accidental (unintentional), initial encounter Is this a current diagnosis for this admission?: Yes Plan: Patient be admitted to the ICU and followed closely. Daily CBC, basic metabolic profiles and magnesium levels will be obtained. A psychiatric consult will be obtained when the patient is more mentally alert. (3) Hypotension Qualifiers: Hypotension type: unspecified hypotension type Qualified Code(s): I95.9 - Hypotension, unspecified Is this a current diagnosis for this admission?: Yes Plan: Patient's hypotension has resolved at the time of admission. She will be continued on IV fluids and monitored closely in the ICU. (4) Lactic acidosis Is this a current diagnosis for this admission?: Yes Plan: Serial lactic acid levels will be performed. (5) Hypothyroid Qualifiers: Hypothyroidism type: unspecified Qualified Code(s): E03.9 - Hypothyroidism, unspecified Is this a current diagnosis for this admission?: Yes Plan: Patient will be continued on her usual thyroid replacement hormone as soon as she is awake and alert enough to take it orally. A thyroid profile will be obtained to assess her current therapy's efficacy. - Time Time Spent with patient: 15-24 minutes Medications reviewed and adjusted accordingly: Yes - Inpatient Certification Based on my medical assessment, after consideration of the patient's comorbidities, presenting symptoms, or acuity I expect that the services needed warrant INPATIENT care.: Yes I certify that my determination is in accordance with my understanding of Medicare's requirements for reasonable and necessary INPATIENT services [42 CFR 412.3e].: Yes Medical Necessity: Need Close Monitoring Due to Risk of Patient Decompensation, Need For IV Fluids, Need For Continuous Telemetry Monitoring, Need for Neurolog ical Checks, Risk of Complication if Not Cared For in Hospital
[2018-08-03] MEDS: HEPARIN SOD (PORCINE) 5,000 UNIT/ML 1 ML SYRINGE SUBCUT SCH ×3 (07:20→22:03)
[2018-08-03] MEDS ORDERED: PANTOPRAZOLE SODIUM 40 MG VIAL IV SCH (10:00)
[2018-08-03] MEDS ORDERED: LEVOTHYROXINE SODIUM 0.075 MG TABLET PO SCH (10:00)
--- NOTE | 2018-08-03 11:27 | RADIOLOGY REPORT (SQ) ---
EXAM DESCRIPTION: CHEST SINGLE VIEW COMPLETED DATE/TIME: 08/03/2018 11:14 am REASON FOR STUDY: central line placement COMPARISON: 08/03/2018 EXAM PARAMETERS: NUMBER OF VIEWS: One view. TECHNIQUE: Single frontal radiographic view of the chest acquired. RADIATION DOSE: NA LIMITATIONS: None. FINDINGS: LUNGS AND PLEURA: No opacities, masses or pneumothorax. No pleural effusion. MEDIASTINUM AND HILAR STRUCTURES: No masses. Contour normal. HEART AND VASCULAR STRUCTURES: Heart normal in size. Normal vasculature. BONES: No acute findings. HARDWARE: New right internal jugular central venous catheter tip overlies cavoatrial junction. OTHER: No other significant finding. IMPRESSION: New right internal jugular central venous catheter tip overlies cavoatrial junction. No pneumothorax. TECHNICAL DOCUMENTATION: JOB ID: [id number] [employer]- All Rights Reserved Reading location - IP/workstation name: [email or web address]
[2018-08-03] MEDS: DOCUSATE SODIUM 100 MG CAPSULE PO SCH ×2 (11:41→17:33)
[2018-08-03] MEDS: ONDANSETRON HCL INJ/PF 4 MG/2 ML SDV IV PRN ×2 (14:17→20:38)
[2018-08-03] MEDS: NORMAL SALINE 1000 ML 1,000 ML IV PRN ×2 (15:57→20:34)
[2018-08-03] MEDS: ACETAMINOPHEN 325 MG TABLET PO PRN ×2 (16:23→20:34)
[2018-08-03] MEDS: ATORVASTATIN CALCIUM 20 MG TABLET PO SCH (22:03)
[2018-08-03] MEDS: BUPROPION HCL 100 MG TABLET PO SCH (22:03)
--- NOTE | 2018-08-03 22:21 | EKG REPORT ---
SEVERITY:- NORMAL ECG - SINUS RHYTHM : Confirmed by: Jenna Head MD 03-Aug-2018 22:20:37
[2018-08-04] MEDS: HEPARIN SOD (PORCINE) 5,000 UNIT/ML 1 ML SYRINGE SUBCUT SCH ×3 (05:25→21:30)
[2018-08-04] MEDS: ONDANSETRON HCL INJ/PF 4 MG/2 ML SDV IV PRN ×2 (05:25→09:00)
[2018-08-04] MEDS: BUPROPION HCL 100 MG TABLET PO SCH ×3 (05:25→21:30)
--- NOTE | 2018-08-04 05:46 | PDOC PROGRESS REPORT ---
Subjective Progress Note for:: 08/03/18 Subjective:: The patient is somewhat somnolent this morning. Her is at the bedside. She does attempt to verbalize answers to questions. Reason For Visit: ACUTE MULTIPLE DRUG OVERDOSE Physical Exam Vital Signs: Temp Pulse Resp BP Pulse Ox 101.5 F H 90 15 149/76 H 96 08/03/18 12:36 08/03/18 14:00 08/03/18 14:00 08/03/18 14:00 08/03/18 14:00 Intake & Output 08/02/18 08/03/18 08/04/18 06:59 06:59 06:59 Intake Total 3443 557 Output Total 1150 Balance 3443 -593 Weight 94.9 kg General appearance: PRESENT: cooperative, other Head exam: PRESENT: atraumatic, normocephalic Ear exam: PRESENT: normal external ear exam Respiratory exam: PRESENT: clear to auscultation josep, symmetrical, unlabored. ABSENT: accessory muscle use, rales, rhonchi, tachypnea, wheezes Cardiovascular exam: PRESENT: RRR, +S1, +S2, systolic murmur - 1/6 GI/Abdominal exam: PRESENT: normal bowel sounds, soft. ABSENT: distended, tenderness Rectal exam: PRESENT: deferred Gentrourinary exam: PRESENT: indwelling catheter Extremities exam: ABSENT: pedal edema Musculoskeletal exam: PRESENT: normal inspection Neurological exam: PRESENT: awake, oriented to person - Appears to be oriented to person, place and situation, oriented to place, oriented to situation. ABSENT: alert - Somnolent Psychiatric exam: PRESENT: flat affect. ABSENT: agitated, anxious Focused psych exam: ABSENT: delusional, restlessness Skin exam: PRESENT: dry, normal color, warm Results Laboratory Results: 08/03/18 00:05 08/03/18 00:05 08/03/18 08/03/18 08/03/18 00:05 00:05 00:05 WBC 10.3 RBC 5.07 Hgb 15.0 Hct 44.0 MCV 87 MCH 29.5 MCHC 34.0 RDW 12.5 Plt Count 224 Seg Neutrophils % 70.2 Lymphocytes % 20.6 Monocytes % 8.0 Eosinophils % 0.6 Basophils % 0.6 Absolute Neutrophils 7.2 Absolute Lymphocytes 2.1 Absolute Monocytes 0.8 Absolute Eosinophils 0.1 Absolute Basophils 0.1 Sodium 138.0 Potassium 4.8 Chloride 101 Carbon Dioxide 27 Anion Gap 10 BUN 18 Creatinine 1.24 Est GFR ( Amer) 54 L Est GFR (Non-Af Amer) 45 L Glucose 102 Lactic Acid Calcium 9.7 Total Bilirubin 0.6 AST 439 H ALT 216 H Alkaline Phosphatase 138 H Total Protein 6.5 Albumin 4.4 TSH 2.60 Urine Color Urine Appearance Urine pH Ur Specific [place] Urine Protein Urine Glucose (UA) Urine Ketones Urine Blood Urine Nitrite Ur Leukocyte Esterase Urine WBC (Auto) Urine RBC (Auto) 08/03/18 08/03/18 08/03/18 02:20 03:46 06:10 WBC RBC Hgb Hct MCV MCH MCHC RDW Plt Count Seg Neutrophils % Lymphocytes % Monocytes % Eosinophils % Basophils % Absolute Neutrophils Absolute Lymphocytes Absolute Monocytes Absolute Eosinophils Absolute Basophils Sodium Potassium Chloride Carbon Dioxide Anion Gap BUN Creatinine Est GFR ( Amer) Est GFR (Non-Af Amer) Glucose Lactic Acid 4.6 H 2.5 H Calcium Total Bilirubin AST ALT Alkaline Phosphatase Total Protein Albumin TSH Urine Color RADHA Urine Appearance SLIGHTLY-CLOUDY Urine pH 5.0 Ur Specific [place] 1.024 Urine Protein NEGATIVE Urine Glucose (UA) NEGATIVE Urine Ketones TRACE H Urine Blood NEGATIVE Urine Nitrite NEGATIVE Ur Leukocyte Esterase NEGATIVE Urine WBC (Auto) 1 Urine RBC (Auto) 1 08/03/18 10:10 WBC RBC Hgb Hct MCV MCH MCHC RDW Plt Count Seg Neutrophils % Lymphocytes % Monocytes % Eosinophils % Basophils % Absolute Neutrophils Absolute Lymphocytes Absolute Monocytes Absolute Eosinophils Absolute Basophils Sodium Potassium Chloride Carbon Dioxide Anion Gap BUN Creatinine Est GFR ( Amer) Est GFR (Non-Af Amer) Glucose Lactic Acid 4.1 H Calcium Total Bilirubin AST ALT Alkaline Phosphatase Total Protein Albumin TSH Urine Color Urine Appearance Urine pH Ur Specific [place] Urine Protein Urine Glucose (UA) Urine Ketones Urine Blood Urine Nitrite Ur Leukocyte Esterase Urine WBC (Auto) Urine RBC (Auto) 08/03/18 00:05 Troponin I < 0.012 Impressions: Head CT 08/03/18 00:13 IMPRESSION: No acute intracranial abnormality is identified. Cervical Spine CT 08/03/18 00:14 IMPRESSION: 1. No acute fracture or subluxation of the cervical spine. 2. Multilevel degenerative change of the cervical spine. This exam was performed according to our departmental dose-optimization program, which includes automated exposure control, adjustment of the mA and/or kV according to patient size and/or use of iterative reconstruction technique. Abdomen/Pelvis CT 08/03/18 01:33 IMPRESSION: Unremarkable appearance of the liver following cholecystectomy. Extensive constipation. Trace effusions. Chest X-Ray 08/03/18 10:46 IMPRESSION: New right internal jugular central venous catheter tip overlies cavoatrial junction. No pneumothorax. Assessment and Plan - Diagnosis (1) Altered mental status Qualifiers: Altered mental status type: coma Coma depth: Lorenzo coma 9-12 Coma timing: in the field (EMT or ambulance) Qualified Code(s): R40.2421 - Lorenzo coma scale score 9-12, in the field [EMT or ambulance] Is this a current diagnosis for this admission?: Yes Plan: Patient is admitted to the ICU for further evaluation and treatment. She will receive supportive and symptomatic cares during her ICU course. She will be given IV fluids and monitored closely for improvements in her medical/mental status. 08/03/2018-the patient is still lethargic this morning but attempts to answer questions appropriately. She is on multiple psychiatric medications. Many of these can be sedating. I will add these back slowly. (2) Polysubstance overdose Qualifiers: Encounter type: initial encounter Injury intent: accidental or uninte ntional Qualified Code(s): T50.901A - Poisoning by unspecified drugs, med icaments and biological substances, accidental (unintentional), initial encounter Is this a current diagnosis for this admission?: Yes Plan: Patient be admitted to the ICU and followed closely. Daily CBC, basic metabolic profiles and magnesium levels will be obtained. A psychiatric consult will be obtained when the patient is more mentally alert. 08/03/2018-I will have psychiatry see the patient. Based on her medication regimen it appears that she has quite severe depression. Her polypharmacy may also be contributing due to the multiple medications and use. (3) Lactic acidosis Is this a current diagnosis for this admission?: Yes Plan: Serial lactic acid levels will be performed. 08/03/2018-her lactic acid level was down to 2.5 but is 4.1 today. I will increase her IV fluids and continue to monitor her lactic acid. Increased lactic acid likely due to low perfusion with her overdose. (4) Hypotension Qualifiers: Hypotension type: unspecified hypotension type Qualified Code(s): I95.9 - H ypotension, unspecified Is this a current diagnosis for this admission?: Yes Plan: Patient's hypotension has resolved at the time of admission. She will be continued on IV fluids and monitored closely in the ICU. 08/03/2018-blood pressure has slowly improved. We have been giving fluids and the patient will start an oral diet today. Blood pressure should stabilize. (5) Hypothyroid Qualifiers: Hypothyroidism type: unspecified Qualified Code(s): E03.9 - Hypothyroidism, unspecified Is this a current diagnosis for this admission?: Yes Plan: Patient will be continued on her usual thyroid replacement hormone as soon as she is awake and alert enough to take it orally. A thyroid profile will be obtained to assess her current therapy's efficacy. 08/03/2018-thyroid chemistries suggest that her current dose is adequate. This dose will be continued. - Time Time Spent with patient: 25-34 minutes Medications reviewed and adjusted accordingly: Yes
[2018-08-04 05:59] LABS: HEMATOCRIT 36.6 % (36.0-47.0); MEAN CORPUSCULAR HEMOGLOBIN 29.7 pg (27.0-33.4); MEAN CORPUSCULAR HGB CONC 34.7 g/dL (32.0-36.0); MEAN CORPUSCULAR VOLUME 86 fl (80-97); PLATELET COUNT 190 10^3/uL (150-450); RED BLOOD COUNT 4.28 10^6/uL (3.72-5.28); RED CELL DISTRIBUTION WIDTH 12.9 % (11.5-14.0); WHITE BLOOD COUNT 10.9 10^3/uL (4.0-10.5)
[2018-08-04 06:13] LABS: HEMOGLOBIN 12.7 g/dL (12.0-15.5)
[2018-08-04 06:26] LABS: ANION GAP 9 (5-19); BLOOD UREA NITROGEN 9 mg/dL (7-20); CALCIUM 8.4 mg/dL (8.4-10.2); CARBON DIOXIDE 24 mmol/L (22-30); CHLORIDE 107 mmol/L (98-107); GLUCOSE 115 mg/dL (75-110); POTASSIUM 3.9 mmol/L (3.6-5.0); SODIUM 140.2 mmol/L (137-145)
[2018-08-04 06:36] LABS: FREE T3 1.72 pg/mL (2.77-5.27); FREE T4 (FREE THYROXINE) 0.84 ng/dL (0.78-2.19)
[2018-08-04 06:49] LABS: THYROID STIMULATING HORMONE 0.58 uIU/mL (0.47-4.68)
[2018-08-04] MEDS: DOCUSATE SODIUM 100 MG CAPSULE PO SCH ×2 (10:30→19:04)
[2018-08-04] MEDS: AMLODIPINE BESYLATE 5 MG TABLET PO SCH (10:30)
[2018-08-04] MEDS: PANTOPRAZOLE SODIUM 40 MG TABLET.DR PO SCH (10:30)
[2018-08-04] MEDS: ESCITALOPRAM OXALATE 10 MG TABLET PO SCH (10:31)
[2018-08-04 15:12] LABS: URINE BENZODIAZEPINES SCREEN UNCONFIRMED POSITIVE
--- NOTE | 2018-08-04 17:21 | PDOC PROGRESS REPORT ---
Subjective Progress Note for:: 08/04/18 Subjective:: The patient is somewhat somnolent this morning. Her is at the bedside. She does attempt to verbalize answers to questions. 08/04/2018-awake and alert. She is complaining of some dyspepsia. Reason For Visit: ACUTE MULTIPLE DRUG OVERDOSE Physical Exam Vital Signs: Temp Pulse Resp BP Pulse Ox 99.7 F 96 16 137/87 H 98 08/04/18 05:32 08/03/18 22:28 08/03/18 23:06 08/03/18 23:06 08/03/18 23:06 Intake & Output 08/03/18 08/04/18 08/05/18 06:59 06:59 06:59 Intake Total 3443 2557 Output Total 3100 Balance 3443 -543 Weight 94.9 kg 94.9 kg General appearance: PRESENT: cooperative, mild distress, well-developed Head exam: PRESENT: atraumatic, normocephalic Ear exam: PRESENT: normal external ear exam Neck exam: PRESENT: other - Right internal jugular central line in place Respiratory exam: PRESENT: clear to auscultation josep, symmetrical, unlabored. ABSENT: accessory muscle use, rales, rhonchi, tachypnea, wheezes Cardiovascular exam: PRESENT: RRR, +S1, +S2, systolic murmur - 1/6 GI/Abdominal exam: PRESENT: normal bowel sounds, soft. ABSENT: distended, tenderness Rectal exam: PRESENT: deferred Gentrourinary exam: ABSENT: indwelling catheter Extremities exam: ABSENT: pedal edema Musculoskeletal exam: PRESENT: normal inspection Neurological exam: PRESENT: alert, awake, oriented to person, oriented to place, oriented to time, oriented to situation, CN II-XII grossly intact Psychiatric exam: PRESENT: normal mood. ABSENT: agitated, anxious Focused psych exam: ABSENT: delusional, restlessness Results Laboratory Results: 08/04/18 05:30 08/04/18 05:30 08/03/18 08/03/18 08/04/18 17:30 22:50 05:30 WBC RBC Hgb Hct MCV MCH MCHC RDW Plt Count Sodium Potassium Chloride Carbon Dioxide Anion Gap BUN Creatinine Est GFR ( Amer) Est GFR (Non-Af Amer) Glucose Lactic Acid 0.6 L 0.7 Calcium Magnesium TSH 0.58 Free T4 0.84 Free T3 pg/mL 1.72 L 08/04/18 08/04/18 08/04/18 05:30 05:30 06:15 WBC 10.9 H RBC 4.28 Hgb 12.7 D Hct 36.6 MCV 86 MCH 29.7 MCHC 34.7 RDW 12.9 Plt Count 190 Sodium 140.2 Potassium 3.9 Chloride 107 Carbon Dioxide 24 Anion Gap 9 BUN 9 Creatinine 0.58 Est GFR ( Amer) > 60 Est GFR (Non-Af Amer) > 60 Glucose 115 H Lactic Acid 1.0 Calcium 8.4 Magnesium 1.9 TSH Free T4 Free T3 pg/mL 08/03/18 00:05 Troponin I < 0.012 Impressions: Head CT 08/03/18 00:13 IMPRESSION: No acute intracranial abnormality is identified. Cervical Spine CT 08/03/18 00:14 IMPRESSION: 1. No acute fracture or subluxation of the cervical spine. 2. Multilevel degenerative change of the cervical spine. This exam was performed according to our departmental dose-optimization program, which includes automated exposure control, adjustment of the mA and/or kV according to patient size and/or use of iterative reconstruction technique. Abdomen/Pelvis CT 08/03/18 01:33 IMPRESSION: Unremarkable appearance of the liver following cholecystectomy. Extensive constipation. Trace effusions. Chest X-Ray 08/03/18 10:46 IMPRESSION: New right internal jugular central venous catheter tip overlies cavoatrial junction. No pneumothorax. Assessment and Plan - Diagnosis (1) Altered mental status Qualifiers: Altered mental status type: coma Coma depth: Lorenzo coma 9-12 Coma timing: in the field (EMT or ambulance) Qualified Code(s): R40.2421 - Lorenzo coma scale score 9-12, in the field [EMT or ambulance] Is this a current diagnosis for this admission?: Yes Plan: Patient is admitted to the ICU for further evaluation and treatment. She will receive supportive and symptomatic cares during her ICU course. She will be given IV fluids and monitored closely for improvements in her medical/mental status. 08/03/2018-the patient is still lethargic this morning but attempts to answer questions appropriately. She is on multiple psychiatric medications. Many of these can be sedating. I will add these back slowly. 08/04/2018-resolved. Her psychiatric medications should be resumed in stages. (2) Polysubstance overdose Qualifiers: Encounter type: initial encounter Injury intent: accidental or un intentional Qualified Code(s): T50.901A - Poisoning by unspecified drugs, medicaments and biological substances, accidental (unintentional), initial encounter Is this a current diagnosis for this admission?: Yes Plan: Patient be admitted to the ICU and followed closely. Daily CBC, basic metabolic profiles and magnesium levels will be obtained. A psychiatric consult will be obtained when the patient is more mentally alert. 08/03/2018-I will have psychiatry see the patient. Based on her medication regimen it appears that she has quite severe depression. Her polypharmacy may also be contributing due to the multiple medications and use. 08/04/2018-I placed the consult with psychiatry. I await their evaluation. I do not believe this was an intentional overdose. The patient does have an appointment with her primary psychiatrist as well. (3) Lactic acidosis Is this a current diagnosis for this admission?: Yes Plan: Serial lactic acid levels will be performed. 08/03/2018-her lactic acid level was down to 2.5 but is 4.1 today. I will increase her IV fluids and continue to monitor her lactic acid. Increased lactic acid likely due to low perfusion with her overdose. 08/04/2018-lactic acid decreased last night and is 1.0 today. Lactic acidosis resolved. (4) Hypotension Qualifiers: Hypotension type: unspecified hypotension type Qualified Code(s): I95.9 - Hypotension, unspecified Is this a current diagnosis for this admission?: Yes Plan: Patient's hypotension has resolved at the time of admission. She will be continued on IV fluids and monitored closely in the ICU. 08/03/2018-blood pressure has slowly improved. We have been giving fluids and the patient will start an oral diet today. Blood pressure should stabilize. 08/04/2018-resolved (5) Hypothyroid Qualifiers: Hypothyroidism type: unspecified Qualified Code(s): E03.9 - Hypothyroidism, unspecified Is this a current diagnosis for this admission?: Yes Plan: Patient will be continued on her usual thyroid replacement hormone as soon as she is awake and alert enough to take it orally. A thyroid profile will be o btained to assess her current therapy's efficacy. 08/03/2018-thyroid chemistries suggest that her current dose is adequate. This dose will be continued. 08/04/2018-continue home medication regimen. (6) Bacteremia Is this a current diagnosis for this admission?: Yes Plan: 08/04/2018-the laboratory called today and reports that there is a positive blood culture with gram-positive cocci in only one bottle. This was the set drawn a fter the right internal jugular catheter was placed. It is possibly a contaminant but we will discontinue the line and send the tip for culture. No antibiotic therapy at this time but I will follow the cultures closely. Her white blood cell count has been stable and she has been afebrile. - Time Time Spent with patient: 25-34 minutes Medications reviewed and adjusted accordingly: Yes Anticipated discharge: Home
[2018-08-04] MEDS: LEVOTHYROXINE SODIUM 0.075 MG TABLET PO SCH (18:59)
[2018-08-04] MEDS: TRAZODONE HCL 50 MG TABLET PO SCH (21:29)
[2018-08-04] MEDS: ATORVASTATIN CALCIUM 20 MG TABLET PO SCH (21:30)
[2018-08-04] MEDS: QUETIAPINE FUMARATE 100 MG TABLET PO SCH (21:30)
[2018-08-04] MEDS: GABAPENTIN 300 MG CAPSULE PO SCH (21:30)
[2018-08-04] MEDS: ZOLPIDEM TARTRATE 5 MG TABLET PO SCH (21:30)
[2018-08-04] MEDS ORDERED: QUETIAPINE FUMARATE 600 MG PO SCH (22:00)
[2018-08-04] MEDS ORDERED: (PENDING PHARMACY ID) (Trazodone Hcl [Trazodone Hcl] 300 MG) PO SCH (22:00)
[2018-08-05] MEDS: ACETAMINOPHEN 325 MG TABLET PO PRN (03:42)
[2018-08-05] MEDS: HEPARIN SOD (PORCINE) 5,000 UNIT/ML 1 ML SYRINGE SUBCUT SCH ×3 (05:02→21:44)
[2018-08-05] MEDS: BUPROPION HCL 100 MG TABLET PO SCH ×3 (05:21→21:43)
[2018-08-05] MEDS: LEVOTHYROXINE SODIUM 0.075 MG TABLET PO SCH (05:21)
[2018-08-05 06:23] LABS: HEMATOCRIT 31.5 % (36.0-47.0); HEMOGLOBIN 11.2 g/dL (12.0-15.5); MEAN CORPUSCULAR HEMOGLOBIN 29.9 pg (27.0-33.4); MEAN CORPUSCULAR HGB CONC 35.6 g/dL (32.0-36.0); MEAN CORPUSCULAR VOLUME 84 fl (80-97); PLATELET COUNT 168 10^3/uL (150-450); RED BLOOD COUNT 3.75 10^6/uL (3.72-5.28); RED CELL DISTRIBUTION WIDTH 12.5 % (11.5-14.0); WHITE BLOOD COUNT 8.3 10^3/uL (4.0-10.5)
[2018-08-05 06:43] LABS: ANION GAP 8 (5-19); BLOOD UREA NITROGEN 8 mg/dL (7-20); CALCIUM 8.4 mg/dL (8.4-10.2); CARBON DIOXIDE 24 mmol/L (22-30); CHLORIDE 109 mmol/L (98-107); GLUCOSE 97 mg/dL (75-110); POTASSIUM 3.5 mmol/L (3.6-5.0); SODIUM 141.2 mmol/L (137-145)
[2018-08-05] MEDS: DOCUSATE SODIUM 100 MG CAPSULE PO SCH ×2 (09:19→17:08)
[2018-08-05] MEDS: PANTOPRAZOLE SODIUM 40 MG TABLET.DR PO SCH (09:36)
[2018-08-05] MEDS: ESCITALOPRAM OXALATE 10 MG TABLET PO SCH (09:36)
[2018-08-05] MEDS: GABAPENTIN 300 MG CAPSULE PO SCH ×2 (09:36→21:43)
[2018-08-05] MEDS: AMLODIPINE BESYLATE 5 MG TABLET PO SCH (09:36)
[2018-08-05] MEDS ORDERED: CLONAZEPAM 1 MG TABLET PO SCH ×2 (10:00→22:00)
[2018-08-05] MEDS ORDERED: CLONAZEPAM 2 MG PO SCH (10:00)
[2018-08-05] MEDS ORDERED: (PENDING PHARMACY ID) (Losartan Potassium [Losartan Potassium] 100 MG) PO SCH (10:00)
[2018-08-05] MEDS ORDERED: LOSARTAN POTASSIUM 50 MG TABLET PO SCH (10:00)
[2018-08-05] MEDS: ONDANSETRON HCL INJ/PF 4 MG/2 ML SDV IV PRN ×2 (10:39→20:12)
[2018-08-05] MEDS ORDERED: VANCOMYCIN HCL 0 MG in DEXTROSE 5%-WATER 250 ML IV NR (13:15)
[2018-08-05] MEDS ORDERED: LOPERAMIDE HCL 2 MG CAPSULE PO PRN (13:37)
[2018-08-05] MEDS: VANCOMYCIN HCL 1,500 MG in DEXTROSE 5%-WATER 250 ML IV SCH ×2 (15:59→22:05)
--- NOTE | 2018-08-05 21:35 | PDOC PROGRESS REPORT ---
Subjective Progress Note for:: 08/05/18 Subjective:: Still feels poorly. She is also having diarrhea today. Reason For Visit: ACUTE MULTIPLE DRUG OVERDOSE Physical Exam Vital Signs: Temp Pulse Resp BP Pulse Ox 98.7 F 109 H 15 111/74 96 08/05/18 11:15 08/05/18 11:15 08/05/18 11:15 08/05/18 11:15 08/05/18 11:15 Intake & Output 08/04/18 08/05/18 08/06/18 06:59 06:59 06:59 Intake Total 2557 300 Output Total 3100 Balance -543 300 Weight 94.9 kg 92.9 kg General appearance: PRESENT: cooperative, mild distress, well-developed Head exam: PRESENT: atraumatic, normocephalic Ear exam: PRESENT: normal external ear exam Respiratory exam: PRESENT: clear to auscultation josep, symmetrical, unlabored. ABSENT: accessory muscle use, rales, rhonchi, tachypnea, wheezes Cardiovascular exam: PRESENT: RRR, +S1, +S2, systolic murmur - /6 GI/Abdominal exam: PRESENT: distended - Slightly distended, normal bowel sounds, soft, tenderness - Nonfocal tenderness across the upper abdomen Rectal exam: PRESENT: deferred Gentrourinary exam: ABSENT: indwelling catheter Extremities exam: ABSENT: pedal edema Musculoskeletal exam: PRESENT: normal inspection Neurological exam: PRESENT: alert, awake, oriented to person, oriented to place, oriented to time, oriented to situation, CN II-XII grossly intact. ABSENT: motor sensory deficit Psychiatric exam: PRESENT: other - Very sad and tearful. Her daughter came to visit on a break from [place] school. The patient thought she might be home. The fact that she is not able to spend time with her daughter is very upsetting.. ABSENT: agitated, anxious Focused psych exam: ABSENT: delusional, restlessness Skin exam: PRESENT: dry, normal color, warm, other - No erythema at the central line site post catheter removal Results Laboratory Results: 08/05/18 06:02 08/05/18 06:02 08/05/18 08/05/18 06:02 06:02 WBC 8.3 RBC 3.75 Hgb 11.2 L Hct 31.5 L MCV 84 MCH 29.9 MCHC 35.6 RDW 12.5 Plt Count 168 Sodium 141.2 Potassium 3.5 L Chloride 109 H Carbon Dioxide 24 Anion Gap 8 BUN 8 Creatinine 0.55 Est GFR ( Amer) > 60 Est GFR (Non-Af Amer) > 60 Glucose 97 Calcium 8.4 Magnesium 2.0 08/03/18 00:05 Troponin I < 0.012 Impressions: Head CT 08/03/18 00:13 IMPRESSION: No acute intracranial abnormality is identified. Cervical Spine CT 08/03/18 00:14 IMPRESSION: 1. No acute fracture or subluxation of the cervical spine. 2. Multilevel degenerative change of the cervical spine. This exam was performed according to our departmental dose-optimization program, which includes automated exposure control, adjustment of the mA and/or kV according to patient size and/or use of iterative reconstruction technique. Abdomen/Pelvis CT 08/03/18 01:33 IMPRESSION: Unremarkable appearance of the liver following cholecystectomy. Extensive constipation. Trace effusions. Chest X-Ray 08/03/18 10:46 IMPRESSION: New right internal jugular central venous catheter tip overlies cavoatrial junction. No pneumothorax. Assessment and Plan - Diagnosis (1) Altered mental status Qualifiers: Altered mental status type: coma Coma depth: Lorenzo coma 9-12 Coma timing: in the field (EMT or ambulance) Qualified Code(s): R40.2421 - Lorenzo coma scale score 9-12, in the field [EMT or ambulance] Is this a current diagnosis for this admission?: Yes Plan: Patient is admitted to the ICU for further evaluation and treatment. She will receive supportive and symptomatic cares during her ICU course. She will be given IV fluids and monitored closely for improvements in her medical/mental status. 08/03/2018-the patient is still lethargic this morning but attempts to answer questions appropriately. She is on multiple psychiatric medications. Many of these can be sedating. I will add these back slowly. 08/04/2018-resolved. Her psychiatric medications should be resumed in stages. 08/05/2018-majority of her medications have been resumed. Altered mental status has resolved. She is quite sad today as outlined above. (2) Polysubstance overdose Qualifiers: Encounter type: initial encounter Injury intent: accidental or uninte ntional Qualified Code(s): T50.901A - Poisoning by unspecified drugs, med icaments and biological substances, accidental (unintentional), initial encounter Is this a current diagnosis for this admission?: Yes Plan: Patient be admitted to the ICU and followed closely. Daily CBC, basic metabolic profiles and magnesium levels will be obtained. A psychiatric consult will be obtained when the patient is more mentally alert. 08/03/2018-I will have psychiatry see the patient. Based on her medication regimen it appears that she has quite severe depression. Her polypharmacy may also be contributing due to the multiple medications and use. 08/04/2018-I placed the consult with psychiatry. I await their evaluation. I do not believe this was an intentional overdose. The patient does have an appointment with her primary psychiatrist as well. 08/05/2018-psychiatry agrees that this was not an intentional overdose. They have cleared the patient. She will be discharged as soon as there is an adequate plan for her bacteremia. (3) Lactic acidosis Is this a current diagnosis for this admission?: Yes Plan: Serial lactic acid levels will be performed. 08/03/2018-her lactic acid level was down to 2.5 but is 4.1 today. I will increase her IV fluids and continue to monitor her lactic acid. Increased lactic acid likely due to low perfusion with her overdose. 08/04/2018-lactic acid decreased last night and is 1.0 today. Lactic acidosis resolved. 08/05/2018-resolved (4) Hypotension Qualifiers: Hypotension type: unspecified hypotension type Qualified Code(s): I95.9 - Hypotension, unspecified Is this a current diagnosis for this admission?: Yes Plan: Patient's hypotension has resolved at the time of admission. She will be continued on IV fluids and monitored closely in the ICU. 08/03/2018-blood pressure has slowly improved. We have been giving fluids and the patient will start an oral diet today. Blood pressure should stabilize. 08/04/2018-resolved 08/05/2018-the patient did have marginal blood pressure and so we held her losartan dose. (5) Hypothyroid Qualifiers: Hypothyroidism type: unspecified Qualified Code(s): E03.9 - Hypothyroidism, unspecified Is this a current diagnosis for this admission?: Yes Plan: Patient will be continued on her usual thyroid replacement hormone as soon as she is awake and alert enough to take it orally. A thyroid profile will be obtained to assess her current therapy's efficacy. 08/03/2018-thyroid chemistries suggest that her current dose is adequate. This dose will be continued. 08/04/2018-continue home medication regimen. 08/05/2018-no change in treatment plan (6) Bacteremia Is this a current diagnosis for this admission?: Yes Plan: 08/04/2018-the laboratory called today and reports that there is a positive blood culture with gram-positive cocci in only one bottle. This was the set drawn after the right internal jugular catheter was placed. It is possibly a con taminant but we will discontinue the line and send the tip for culture. No antibiotic therapy at this time but I will follow the cultures closely. Her white blood cell count has been stable and she has been afebrile. 08/05/2018-the triple-lumen catheter tip was submitted for culture. It is also growing gram-positive cocci. Hopefully final identification and sensitivities will be available tomorrow. The patient should be feeling better now that her vancomycin is being resumed. - Time Time Spent with patient: 25-34 minutes Medications reviewed and adjusted accordingly: Yes Anticipated discharge: Home Within: within 48 hours
[2018-08-05] MEDS: TRAZODONE HCL 50 MG TABLET PO SCH (21:43)
[2018-08-05] MEDS: ZOLPIDEM TARTRATE 5 MG TABLET PO SCH (21:43)
[2018-08-05] MEDS: ATORVASTATIN CALCIUM 20 MG TABLET PO SCH (21:43)
[2018-08-05] MEDS: QUETIAPINE FUMARATE 100 MG TABLET PO SCH (21:43)
[2018-08-06] MEDS: HEPARIN SOD (PORCINE) 5,000 UNIT/ML 1 ML SYRINGE SUBCUT SCH ×2 (06:17→14:14)
[2018-08-06] MEDS: VANCOMYCIN HCL 1,500 MG in DEXTROSE 5%-WATER 250 ML IV SCH ×2 (06:21→14:16)
[2018-08-06] MEDS: BUPROPION HCL 100 MG TABLET PO SCH ×2 (06:22→14:25)
[2018-08-06] MEDS: LEVOTHYROXINE SODIUM 0.075 MG TABLET PO SCH (06:22)
[2018-08-06 08:22] LABS: HEMOGLOBIN 11.4 g/dL (12.0-15.5); MEAN CORPUSCULAR HEMOGLOBIN 29.8 pg (27.0-33.4); MEAN CORPUSCULAR HGB CONC 34.6 g/dL (32.0-36.0); MEAN CORPUSCULAR VOLUME 86 fl (80-97); PLATELET COUNT 187 10^3/uL (150-450); RED BLOOD COUNT 3.82 10^6/uL (3.72-5.28); RED CELL DISTRIBUTION WIDTH 12.5 % (11.5-14.0); WHITE BLOOD COUNT 8.1 10^3/uL (4.0-10.5)
[2018-08-06] MEDS ORDERED: LOSARTAN POTASSIUM 25 MG TABLET PO SCH (10:00)
[2018-08-06] MEDS: ESCITALOPRAM OXALATE 10 MG TABLET PO SCH (11:21)
[2018-08-06] MEDS: DOCUSATE SODIUM 100 MG CAPSULE PO SCH (11:21)
[2018-08-06] MEDS: PANTOPRAZOLE SODIUM 40 MG TABLET.DR PO SCH (11:22)
[2018-08-06] MEDS: GABAPENTIN 300 MG CAPSULE PO SCH (11:22)
[2018-08-06] MEDS: AMLODIPINE BESYLATE 5 MG TABLET PO SCH (11:22)
[2018-08-06] MEDS: ACETAMINOPHEN 325 MG TABLET PO PRN (12:06)
[2018-08-06 14:22] LABS: VANCOMYCIN,TROUGH 31.6 ug/mL (5.0-20.0)
[2018-08-06 14:40] LABS: ANION GAP 8 (5-19); BLOOD UREA NITROGEN 8 mg/dL (7-20); CALCIUM 8.6 mg/dL (8.4-10.2); CARBON DIOXIDE 25 mmol/L (22-30); CHLORIDE 109 mmol/L (98-107); GLUCOSE 116 mg/dL (75-110); POTASSIUM 3.4 mmol/L (3.6-5.0)
[2018-08-06 16:29] VITALS: BP 108/71
--- NOTE | 2018-08-06 20:26 | PDOC DISCHARGE SUMMARY ---
General - Admit/Disc Date/PCP Admission Date/Primary Care Provider: 08/03/18 04:49 TE DONOHUE MD Discharge Date: 08/06/18 - Discharge Diagnosis (1) Altered mental status Is this a current diagnosis for this admission?: Yes Summary: Due to polypharmacy. Resolved (2) Polysubstance overdose Is this a current diagnosis for this admission?: Yes Summary: Unintentional. In fact her psychiatrist is attempting to slowly decrease her multiple medications. At the time of discharge I did make some suggestions to decrease in small amount some of the more sedating medication (3) Lactic acidosis Is this a current diagnosis for this admission?: Yes Summary: Resolved with IV fluids (4) Hypotension Is this a current diagnosis for this admission?: Yes Summary: The patient's blood pressure will not tolerate all of the previous antihypertensive medications. For this reason I decreased her losartan dose from 100 mg to 25 mg daily. She will follow-up with her primary care physician. I explained to her that if her blood pressure is elevated at that time he will begin to increase the dose of medication. (5) Hypothyroid Is this a current diagnosis for this admission?: Yes Summary: Continue previous dose of levothyroxine. (6) Bacteremia Is this a current diagnosis for this admission?: Yes Summary: The patient likely had a central line infection. She had staph epidermidis in the blood culture and was growing gram-positive cocci in clusters with the culture of the central line tip. There was a pansensitive organism. She has a normal white count and she is not exhibiting any significant fever. I explained that I felt it was safe for her to discharged home with 10 days of cephalexin 500 mg 4 times a day. I explained that the acute illness will leave her feeling poorly and tired for the next week or possibly to and that her recovery from such a critical incident will take time. I told her that just being home will m nava her feel better. (7) Bipolar disorder Is this a current diagnosis for this admission?: Yes Summary: The patient has bipolar disorder with significant depression. She is on multiple medications. Her psychiatrist is actively trying to wean these. She will continue to see her psychiatrist and she does see him monthly. - Additional Information Resuscitation Status: Full Code Discharge Diet: Cardiac Discharge Activity: Activity As Tolerated, Balance Activity w/Rest Prescriptions: Cephalexin [Cephalexin 500 MG Tablet] 1 tab PO QID #40 tablet Losartan Potassium [Cozaar 25 mg Tablet] 25 mg PO DAILY 10 Days #10 tablet Home Medications: Atorvastatin Calcium 20 mg PO QHS 02/28/17 Gabapentin 300 mg PO BID 02/28/17 Levothyroxine Sodium [Synthroid 0.075 mg Tablet] 0.075 mg PO DAILY 02/28/17 Quetiapine Fumarate 600 mg PO QHS 02/28/17 Trazodone HCl 300 mg PO QHS 02/28/17 Escitalopram Oxalate [Lexapro] 20 mg PO DAILY 07/05/17 Pantoprazole Sodium 40 mg PO DAILY 03/29/18 Amlodipine Besylate [Norvasc 5 mg Tablet] 5 mg PO DAILY 08/03/18 Bupropion HCl [Wellbutrin Xl 300mg 24hr Tablet] 1 tab PO DAILY 08/03/18 Zolpidem Tartrate [Ambien Cr] 12.5 mg PO QHS 08/03/18 Acetaminophen [Tylenol 325 mg Tablet] 650 mg PO Q4HP PRN tablet 08/06/18 Cephalexin [Cephalexin 500 MG Tablet] 1 tab PO QID #40 tablet 08/06/18 Clonazepam [Klonopin 1 mg Tablet] 2 mg PO QHS tablet 08/06/18 Docusate Sodium [Colace 100 mg Capsule] 100 mg PO BID capsule 08/06/18 Levothyroxine Sodium [Synthroid 0.075 mg Tablet] 0.075 mg PO Q6AM tablet 08/06/18 Losartan Potassium [Cozaar 25 mg Tablet] 25 mg PO DAILY 10 Days #10 tablet 08/06/18 Nicotine [Nicoderm 21 mg/24 Hr Transderm Patch] 1 each TD DAILYP PRN patch.td24 08/06/18 Trazodone HCl [Desyrel 50 mg Tablet] 300 mg PO QHS tablet 08/06/18 Zolpidem Tartrate [Ambien 5 mg Tablet] 10 mg PO QHS tablet 08/06/18 History of Present Illness Patient complains of: Patient presented obtunded History of Present Illness: BERTHA PORRAS is a 58 year old female who suffered an unintentional overdose of medications resulting in obtundation requiring intubation, mechanical ventil ation and admission to the intensive care unit. Hospital Course Hospital Course: The patient was able to be weaned from her mechanical ventilation without di fficulty. She has no underlying lung disease. It took several days with increasing volumes of intravenous fluid for her lactic acidosis to clear. Her multiple psychiatric medications were resumed in 2 stages. She was also seen by psychiatry and they agreed in a nonintentional overdose with polypharmacy. She was feeling poorly and exhibiting a low-grade temperature and so blood cultures were obtained. Gram-positive cocci in clusters was isolated. The central line was removed and the catheter tip was cultured and this also shows gram-positive cocci in clusters. Staph epidermidis is the offending organism. Normally thought to be a contaminant with the catheter tip culture being positive as well as the blood culture I will place the patient on cephalexin 500 mg 4 times a day for 10 days as this is consistent with the sensitivity pattern. I explained the usual timeframe for recovery from this episode of critical illness. Her daughter, who was at the bedside, is actually in school for a physician's assistant produce manager degree. She also understood the discussion and will help to reinforce it with her mother. Physical Exam Vital Signs: Temp Pulse Resp BP Pulse Ox 100.1 F 87 16 115/62 93 08/06/18 11:19 08/06/18 11:19 08/06/18 11:19 08/06/18 11:19 08/06/18 11:19 Intake & Output 08/05/18 08/06/18 08/07/18 06:59 06:59 06:59 Intake Total 300 1816 250 Balance 300 1816 250 Weight 92.9 kg General appearance: PRESENT: no acute distress, well-developed Head exam: PRESENT: atraumatic, normocephalic Eye exam: PRESENT: conjunctiva pink. ABSENT: scleral icterus Ear exam: PRESENT: normal external ear exam Respiratory exam: PRESENT: clear to auscultation josep, symmetrical, unlabored. ABSENT: rales, rhonchi, wheezes Cardiovascular exam: PRESENT: RRR, +S1, +S2 GI/Abdominal exam: PRESENT: normal bowel sounds, soft. ABSENT: distended, tenderness Extremities exam: ABSENT: pedal edema Neurological exam: PRESENT: alert, altered, oriented to person, oriented to place, oriented to time, oriented to situation, CN II-XII grossly intact. ABSENT: motor sensory deficit Psychiatric exam: PRESENT: flat affect. ABSENT: agitated, anxious Focused psych exam: ABSENT: delusional, restlessness Results Laboratory Results: 08/06/18 04:40 08/06/18 13:48 08/05/18 08/06/18 08/06/18 19:30 04:40 04:40 WBC 8.1 RBC 3.82 Hgb 11.4 L Hct 33.0 L MCV 86 MCH 29.8 MCHC 34.6 RDW 12.5 Plt Count 187 Sodium Potassium Chloride Carbon Dioxide Anion Gap BUN Creatinine Est GFR ( Amer) Est GFR (Non-Af Amer) Glucose Calcium Magnesium 2.2 Stool for White Cells MODERATE H 08/06/18 08/06/18 13:48 13:48 WBC RBC Hgb Hct MCV MCH MCHC RDW Plt Count Sodium 142.0 Potassium 3.4 L Chloride 109 H Carbon Dioxide 25 Anion Gap 8 BUN 8 Creatinine 1.59 H 1.59 H Est GFR ( Amer) 41 L 41 L Est GFR (Non-Af Amer) 34 L 34 L Glucose 116 H Calcium 8.6 Magnesium Stool for White Cells 08/03/18 00:05 Troponin I < 0.012 Impressions: Head CT 08/03/18 00:13 IMPRESSION: No acute intracranial abnormality is identified. Cervical Spine CT 08/03/18 00:14 IMPRESSION: 1. No acute fracture or subluxation of the cervical spine. 2. Multilevel degenerative change of the cervical spine. This exam was performed according to our departmental dose-optimization program, which includes automated exposure control, adjustment of the mA and/or kV according to patient size and/or use of iterative reconstruction technique. Abdomen/Pelvis CT 08/03/18 01:33 IMPRESSION: Unremarkable appearance of the liver following cholecystectomy. Extensive constipation. Trace effusions. Chest X-Ray 08/03/18 10:46 IMPRESSION: New right internal jugular central venous catheter tip overlies cavoatrial junction. No pneumothorax. Qualifiers - * PATIENT BEING DISCHARGED WITH ANY OF THE FOLLOWING DIAGNOSIS: No Acute Heart Failure Is this a Heart Failure Patient?: No
[2018-08-07] MEDS ORDERED: VANCOMYCIN HCL 1,500 MG in DEXTROSE 5%-WATER 250 ML IV SCH (10:00)
--- NOTE | 2018-08-30 16:23 | Operative Report ---
Bedside Procedure - History of Present Illness History of Present Illness: BERTHA PORRAS is a 58 year old female who presented to the emergency room via EMS for a multiple drug overdose. The patient's admits that she had been prescribed multiple new medications for treatment of a new acute pain in her left shoulder and on the evening prior to admission she had taken her medications and then fell asleep. He found her approximately 2 hours later sitting on the floor next to her bed and being poorly responsive, thus prompting him to call EMS. Upon EMS arrival the patient was unresponsive and she was transported to the emergency room. Her states that she had recently received prescriptions for Valium, Flexeril, Percocet, Ambien, gabapentin and Toradol. He is uncertain what combination of medications or numbers of the medication she may have taken. He does not feel that she was intentionally trying to harm herself as she has not been depressed recently or making any overtures or gestures suggestive of suicidal intent. She does have a past history of overdose and possible suicide attempt. The patient herself is poorly responsive and unable to provide reliable information to contribute to her medical care at this time. In the emergency room she was found to be mildly hypotensive initially but responded well to fluid bolus therapy. She has been able to tolerate supplemental oxygen via nasal cannula to maintain an adequate oxygenation. She will be admitted to the hospital for further evaluation and treatment initially in the ICU. Indication for Procedure: vasoactive drugs poor venous access Date: 08/03/18 Surgeon: NIEVES RESTREPO - Central Line Right Internal jugular Time completed: 10:53 Consent obtained: Yes Central line pre-insertion: Sterile PPE donned, Betadine prep applied, Chloraprep applied, Sterile drapes applied Central line lumen type: Triple Anesthetic type: 1% Lidocaine Ultrasound guided: Yes Line secured with sutures: Yes Central line post-insertion: Blood return from lumens, Biopatch applied, Sutured, Sterile dressing applied, Position confirmed w/ CXR Complications: No
== END 2018-08-06 16:55 | disposition home or self-care (01) | DRG 918 ==
LOC: ER 23:51 → EH 08-03 04:49 → ICU 08-03 06:56 → 5 08-03 23:21
PROVIDERS: ADMIT Emergency Medicine; ATTEND Emergency Medicine
PROC: 02HV33Z Insertion of Infusion Device into Superior Vena Cava, Percutaneous Approach (ICD-10-PCS; principal; 2018-08-03)
DX: T42.4X1A Poisoning by benzodiazepines, accidental (unintentional), initial encounter (principal); T80.211A Bloodstream infection due to central venous catheter, initial encounter; E87.2 Acidosis; R78.81 Bacteremia; T43.591A Poisoning by other antipsychotics and neuroleptics, accidental (unintentional), initial encounter; T43.291A Poisoning by other antidepressants, accidental (unintentional), initial encounter; T43.221A Poisoning by selective serotonin reuptake inhibitors, accidental (unintentional), initial encounter; T42.6X1A Poisoning by other antiepileptic and sedative-hypnotic drugs, accidental (unintentional), initial encounter; T48.1X1A Poisoning by skeletal muscle relaxants [neuromuscular blocking agents], accidental (unintentional), initial encounter; E03.9 Hypothyroidism, unspecified; F41.1 Generalized anxiety disorder; I95.9 Hypotension, unspecified; R40.2421 Glasgow coma scale score 9-12, in the field [EMT or ambulance]; F31.9 Bipolar disorder, unspecified; Y83.8 Other surgical procedures as the cause of abnormal reaction of the patient, or of later complication, without mention of misadventure at the time of the procedure; M19.90 Unspecified osteoarthritis, unspecified site; I10 Essential (primary) hypertension; E78.5 Hyperlipidemia, unspecified; Z79.890 Hormone replacement therapy; Z79.899 Other long term (current) drug therapy; Z91.81 History of falling; Z88.2 Allergy status to sulfonamides
CPT/HCPCS: 36415; 70450; 71045; 72125; 74177; 80048; 80053; 80202; 80307; 81001; 82565; 82962; 83605; 83735; 84439; 84443; 84481; 84484; 85025; 85027; 87040; 87045; 87070; 87077; 87186; 87205; 89055; 93005; 93010; 96361; 96374; 99291; C1751; J1642; J1644; J2310; J2405; J3370; J3490; J7030; J7060; J7120; L0120; S0164